=== PATIENT | male | born 1955 | race African-American/Black ===

== ENCOUNTER 2017-06-11 16:16 | Inpatient (IN) ==
[2017-06-11] MEDS ORDERED: Ondansetron 4 MG/2 ML VIAL IVP ONE (16:32)
[2017-06-11] MEDS ORDERED: 0.9 % Sodium Chloride 1,000 ML IVC ONE (16:32)
[2017-06-11] MEDS ORDERED: Dicyclomine 20 MG/2 ML AMPUL IM ONE (16:34)
--- NOTE | 2017-06-11 16:40 | Emergency Department Note ---
Disposition Clinical Impression: Hyponatremia Diarrhea Qualifiers: Diarrhea type: unspecified type Qualified Code(s): R19.7 - Diarrhea, unspecified Abdominal pain Qualifiers: Abdominal location: generalized Qualified Code(s): R10.84 - Generalized abdominal pain Disposition: Admitted As Inpatient Condition: Fair Time of Disposition: 21:31 General Adult HPI - General Chief complaint: ED Abdominal Pain Stated complaint: abdominal cramps, diarrhea Time Seen by Provider: 06/11/17 16:21 Source: patient, EMS Mode of arrival: ambulatory Limitations: no limitations Nursing Notes Reviewed: Yes Vital Signs Reviewed: Yes - History of Present Illness HPI Narrative: Patient is a 62-year-old male with a past medical history of prostate cancer resulting in coal colectomy and a colostomy bag and a history of drug abuse including opiates and cocaine and alcohol presenting today with diffuse cramping abdominal pain and watery stools in his colostomy bag. He states that 2 days ago he was felt that his stoma was blocked so yesterday he took a dose of MiraLAX he also drank lots of coffee to help stimulate bowel movements now he has this diffuse abdominal cramping with the diarrhea. He is denying any fevers or chills no chest pain or shortness of breath, no flank pain no changes in urination. States he does feel nauseous, he has not seen any blood in the stool. Pain Scale: 10 - Related Data Home Medications Medication Instructions Recorded Confirmed Tamsulosin [Flomax] 0.4 mg PO HS 12/31/15 08/17/16 Albuterol Neb [Proventil Neb] 2.5 mg IH Q4H PRN 08/17/16 08/17/16 Albuterol Sulfate [Albuterol 2 puff IH Q4H PRN 08/17/16 08/17/16 Inhaler] Aspirin Enteric Coated [Aspirin EC] 81 mg PO DAILY 08/17/16 08/17/16 Atorvastatin Calcium [Lipitor] 20 mg PO QPM 08/17/16 08/17/16 Baclofen [Lioresal] 10 mg PO TID PRN 08/17/16 08/17/16 Chlorhexidine Gluconate [Peridex] 15 ml MM BID 08/17/16 08/17/16 Dicyclomine HCl [Bentyl] 20 mg PO Q6H PRN 08/17/16 08/17/16 Enoxaparin [Lovenox] 40 mg SQ DAILY MDD STOP 08-18-16. 08/17/16 08/17/16 Finasteride [Proscar] 5 mg PO HS 08/17/16 08/17/16 FluocinoNIDE 0.05% CRM [Lidex] 1 appl TP BID PRN 08/17/16 08/17/16 Gabapentin [Neurontin] 600 mg PO TID 08/17/16 08/17/16 Lidocaine Patch [Lidoderm 5% patch] 1 each TP DAILY 08/17/16 08/17/16 Loperamide [Imodium] 2 mg PO AD PRN 08/17/16 08/17/16 Melatonin 3 mg PO HS 08/17/16 08/17/16 Mesalamine [Canasa] 1,000 mg RC HS 08/17/16 08/17/16 Mupirocin [Bactroban Oint] 1 appl TP TID 08/17/16 08/17/16 Naproxen [Naprosyn] 500 mg PO BID 08/17/16 08/17/16 Ondansetron HCl [Zofran] 4 mg PO Q6H PRN 08/17/16 08/17/16 Promethazine [Phenergan] 12.5 mg IM Q6HR PRN 08/17/16 08/17/16 Sertraline [Zoloft] 50 mg PO DAILY 08/17/16 08/17/16 Trazodone HCl 100 mg PO HS PRN 08/17/16 08/17/16 hydrOXYzine pamoate [Hydroxyzine 25 mg PO TID PRN 08/17/16 08/17/16 Pamoate] Previous Rx's Medication Instructions Recorded Magnesium Oxide 250 mg PO QDPC 30 Days 08/19/16 Metoprolol XL (24 HR) Succ [Toprol 12.5 mg PO DAILY 30 Days 08/19/16 Xl] Promethazine [Phenergan] 12.5 mg PO Q6HR PRN #8 tablet 02/19/17 Allergies Allergy/AdvReac Type Severity Reaction Status Date / Time etodolac Allergy Swelling Verified 06/11/17 16:26 of Lip/Tongue/Throat Penicillins Allergy See Verified 06/11/17 16:26 Comments sulfamethoxazole Allergy See Verified 06/11/17 16:26 [From Bactrim] Comments Tetracycline Allergy See Verified 06/11/17 16:26 Comments trimethoprim [From Bactrim] Allergy See Verified 06/11/17 16:26 Comments All systems ED: reviewed and negative except as stated. Constitutional: Denies: fever, chills Cardiovascular: Denies: chest pain, palpitations Respiratory: Denies: cough, dyspnea, wheezes Gastrointestinal: Reports: abdominal pain, nausea, vomiting (1 episode), diarrhea. Denies: constipation, hematemesis, melena, hematochezia Genitourinary: Denies: urgency, dysuria Musculoskeletal: Denies: back pain, neck pain Integumentary: Denies: rash, abrasion Neurological: Denies: headache, weakness Past Medical History - Past Medical History Medical history: Reports: cancer, CHF, COPD, diabetes, GERD, hepatitis, hypertension, myocardial infarction Surgical history: Reports: colostomy Psychiatric history: Reports: anxiety, depression, PTSD - Social History Smoking Status: Current every day smoker Smokeless Tobacco Status: No Alcohol use: Reports: heavy Drug use: Reports: cocaine, opiates Physical Exam - General Limitations: no limitations General appearance: alert, anxious, in distress (mild) - Head Head exam: atraumatic, normocephalic, normal inspection - Eye Eye exam: Present: normal appearance, PERRL - ENT ENT exam: normal exam, normal oropharynx, mucous membranes moist - Neck Neck exam: Present: normal inspection, full ROM, trachea midline - Chest Chest inspection: Present: normal inspection, symmetric chest wall rise - Respiratory Respiratory exam: Present: normal lung sounds bilaterally. Absent: respiratory distress, wheezes - Cardiovascular Cardiovascular exam: Present: regular rate, normal rhythm - Abdominal Exam Abdominal exam: Present: soft, hyperactive bowel sounds, other (Patient has a stoma that appears normal and patent. The colostomy bag has green watery stool present. No surrounding erythema. ). Absent: guarding, rebound, rigidity Abdominal tenderness: Present: diffuse, mild - Extremities Exam Extremities exam: Present: normal inspection, full ROM. Absent: tenderness - Neurological Exam Neurological exam: Present: alert, oriented X3 - Psychiatric Psychiatric exam: Present: normal affect, normal mood - Skin Skin exam: Present: warm, dry, intact, normal color Course Course Narrative: Upon chart review I saw the patient has a history of cocaine, opiate, alcohol use. Patient admits to cocaine use yesterday and the day before. States he does not feel that he is in withdrawal at this time. I ordered him 2 mg of Ativan because the patient is unable to sit still due to his pain. I also ordered him morphine for his pain. - Reevaluation(s) Reevaluation #1: Had a call from the lab patient has a sodium of 120. We have started him on a 1 L bolus of normal saline and believe this is due to his dehydration. Time: 17:28 Reevaluation #2: Patient is having muscular cramps and he will not sit still for his IV fluids to begin running so I ordered him 2mg of ativan. . Time: 18:54 Reevaluation #3: Patient will be admitted to hospitalist Dr. Servando Gambino. Vital Signs Temperature 98.4 F 06/11/17 16:19 Pulse Rate 86 06/11/17 16:19 Respiratory Rate 20 06/11/17 16:19 Blood Pressure 134/89 06/11/17 16:19 O2 Sat by Pulse Oximetry 97 06/11/17 16:19 Temperature 98.4 F 06/11/17 16:19 Pulse Rate 86 06/11/17 16:19 Respiratory Rate 16 06/11/17 22:19 Blood Pressure 143/79 06/11/17 22:19 O2 Sat by Pulse Oximetry 97 06/11/17 16:19 Oxygen Delivery Oxygen Delivery Room Air Medical Decision Making - Medical Records Medical records reviewed: Yes I reviewed the patient's medical records. - Lab Data Lab results reviewed: Yes I reviewed the patient's lab results. Result diagrams: 06/11/17 16:47 06/11/17 16:47 Lab Results 06/11/17 06/11/17 06/11/17 Range/Units 16:47 16:47 16:47 WBC 5.6 (4.3-11.1) K/mcL RBC 5.46 (4.19-5.50) M/mcL Hgb 17.3 H (12.9-16.9) g/dL Hct 49.8 (37.5-50.1) % MCV 91.2 (83.0-100.0) fL MCH 31.7 (28.0-33.3) pg MCHC 34.7 (31.6-35.5) g/dL RDW 12.5 (11.5-14.5) % Plt Count 295 (140-400) K/mcL MPV 8.9 L (9.4-12.4) fL Immature Gran % 0.2 (0-4) % Seg Neutrophils % 58.9 % Lymphocytes % 28.7 % Monocytes % 8.6 % Eosinophils % 2.9 % Basophils % 0.7 % Neutrophils # 3.3 (1.6-8.9) K/mcL Lymphocytes # 1.6 (0.6-4.6) K/mcL Monocytes # 0.5 (0.0-1.3) K/mcL Eosinophils # 0.2 (0.0-0.6) K/mcL Basophils # 0.0 (0.0-0.2) K/mcL Immature Plt Fraction 2.1 (1.1-6.1) % Sodium 120 L* (136-145) mEq/L Potassium 5.3 H (3.5-4.5) mEq/L Chloride 96 L (98-109) mEq/L Carbon Dioxide 15 L (19-29) mEq/L BUN 23 (8-26) mg/dL Creatinine 1.14 (0.72-1.25) mg/dL Est GFR ( Amer) > 60 (> 60) Est GFR (Non-Af Amer) > 60 (> 60) BUN/Creatinine Ratio 20 (6-26) Glucose 125 H (70-99) mg/dL Calculated Osmolality 255 L (280-300) Lactic Acid 1.6 (0.5-2.2) mmol/L Calcium 10.1 (8.6-10.8) mg/dL Total Bilirubin < 0.3 (0.2-1.2) mg/dL Direct Bilirubin 0.2 (0.0-0.5) mg/dL Indirect Bilirubin 0.1 (0.0-1.2) mg/dL AST 25 (5-34) Units/L ALT 19 (0-55) Units/L Alkaline Phosphatase 141 H (38-126) Units/L Serum Total Protein 8.9 H (6.0-8.3) g/dL Albumin 4.2 (3.5-5.0) g/dL Globulin 4.7 H (2.4-3.5) g/dL Albumin/Globulin Ratio 0.9 L (1.1-2.2) Lipase 36 (8-78) Units/L Urine Color (Yellow) Urine Clarity (Clear) Urine pH (5.0-8.0) pH Units Ur Specific [place] (1.010-1.025) Urine Protein (Neg-Trace) mg/dL Urine Glucose (UA) (Normal) mg/dL Urine Ketones (Negative) mg/dL Urine Blood (Negative) Urine Nitrite (Negative) Urine Bilirubin (Negative) Urine Urobilinogen (Normal) mg/dL Ur Leukocyte Esterase (Negative) Urine Microscopic RBC (0-3) per hpf Urine Microscopic WBC (0-3) per hpf Ur Squamous Epith Cells (None-Few) per lpf Amorphous Sediment (Few) Urine Bacteria (None-Few) per hpf Ur Culture Indicated? (NO) 06/11/17 Range/Units 20:22 WBC (4.3-11.1) K/mcL RBC (4.19-5.50) M/mcL Hgb (12.9-16.9) g/dL Hct (37.5-50.1) % MCV (83.0-100.0) fL MCH (28.0-33.3) pg MCHC (31.6-35.5) g/dL RDW (11.5-14.5) % Plt Count (140-400) K/mcL MPV (9.4-12.4) fL Immature Gran % (0-4) % Seg Neutrophils % % Lymphocytes % % Monocytes % % Eosinophils % % Basophils % % Neutrophils # (1.6-8.9) K/mcL Lymphocytes # (0.6-4.6) K/mcL Monocytes # (0.0-1.3) K/mcL Eosinophils # (0.0-0.6) K/mcL Basophils # (0.0-0.2) K/mcL Immature Plt Fraction (1.1-6.1) % Sodium (136-145) mEq/L Potassium (3.5-4.5) mEq/L Chloride (98-109) mEq/L Carbon Dioxide (19-29) mEq/L BUN (8-26) mg/dL Creatinine (0.72-1.25) mg/dL Est GFR ( Amer) (> 60) Est GFR (Non-Af Amer) (> 60) BUN/Creatinine Ratio (6-26) Glucose (70-99) mg/dL Calculated Osmolality (280-300) Lactic Acid (0.5-2.2) mmol/L Calcium (8.6-10.8) mg/dL Total Bilirubin (0.2-1.2) mg/dL Direct Bilirubin (0.0-0.5) mg/dL Indirect Bilirubin (0.0-1.2) mg/dL AST (5-34) Units/L ALT (0-55) Units/L Alkaline Phosphatase (38-126) Units/L Serum Total Protein (6.0-8.3) g/dL Albumin (3.5-5.0) g/dL Globulin (2.4-3.5) g/dL Albumin/Globulin Ratio (1.1-2.2) Lipase (8-78) Units/L Urine Color Yellow (Yellow) Urine Clarity Cloudy A (Clear) Urine pH 6.0 (5.0-8.0) pH Units Ur Specific [place] 1.022 (1.010-1.025) Urine Protein Negative (Neg-Trace) mg/dL Urine Glucose (UA) Normal (Normal) mg/dL Urine Ketones Negative (Negative) mg/dL Urine Blood Moderate H (Negative) Urine Nitrite Negative (Negative) Urine Bilirubin Negative (Negative) Urine Urobilinogen Normal (Normal) mg/dL Ur Leukocyte Esterase Moderate H (Negative) Urine Microscopic RBC 0-3 (0-3) per hpf Urine Microscopic WBC 0-3 (0-3) per hpf Ur Squamous Epith Cells Few (None-Few) per lpf Amorphous Sediment Few (Few) Urine Bacteria Few (None-Few) per hpf Ur Culture Indicated? YES A (NO) - Radiology Data Radiology results reviewed: Yes I reviewed the patient's radiology results. Abdomen/Pelvis CT 06/11/17 19:00 IMPRESSION: Proximal duodenal wall appears somewhat edematous. Findings may be related to mild duodenitis. D/ / Lauren Rob MD / Lauren Rob MD Interpreting Provider: Lauren Rob MD Attestation Statement - Attestation Attestation: I examined this patient and my medical decision-making was reviewed with the Resident Physician. I agree with the documented findings, disposition and treatment plan as described except to the extent set forth below. 62-year-old male with history of cocaine abuse. Ultimately found to have a sympathomimetic Toxidrome. The patient was medicated with benzodiazepines. CT scan of the abdomen was performed which shows edematous duodenum. He will be admitted for further evaluation of hyponatremia. Fluids were initiated in the emergency department patient was admitted in critical condition. I spent greater than 35 minutes of critical care time resuscitating this acutely ill patient suffering from hyponatremia. This is excluding billable procedures.
[2017-06-11 16:55] LABS: Basophils % 0.7 %; Eosinophils # 0.2 K/mcL (0.0-0.6); Eosinophils % 2.9 %; Hematocrit 49.8 % (37.5-50.1); Hemoglobin 17.3 g/dL (12.9-16.9); Immature Granulocytes % 0.2 % (0-4); Immature Platelets 2.1 % (1.1-6.1); Lymphocytes # 1.6 K/mcL (0.6-4.6); Lymphocytes % 28.7 %; Mean Corpuscular HGB Conc 34.7 g/dL (31.6-35.5); Mean Corpuscular Hemoglobin 31.7 pg (28.0-33.3); Mean Corpuscular Volume 91.2 fL (83.0-100.0); Mean Platelet Volume 8.9 fL (9.4-12.4); Monocytes # 0.5 K/mcL (0.0-1.3); Monocytes % 8.6 %; Neutrophils # 3.3 K/mcL (1.6-8.9); Platelet Count 295 K/mcL (140-400); Red Blood Count 5.46 M/mcL (4.19-5.50); Red Cell Distribution Width 12.5 % (11.5-14.5); Segmented Neutrophils % 58.9 %
[2017-06-11] MEDS ORDERED: *HR* Morphine 2 MG/ML SYRINGE IVP ONE (17:06)
[2017-06-11] MEDS ORDERED: *HR* LORazepam 2 MG/ML VIAL IM ONE (17:10)
[2017-06-11 17:14] LABS: Alanine Aminotransferase 19 Units/L (0-55); Albumin 4.2 g/dL (3.5-5.0); Albumin/Globulin Ratio 0.9 (1.1-2.2); Alkaline Phosphatase 141 Units/L (38-126); Aspartate Amino Transferase 25 Units/L (5-34); BUN/Creatinine Ratio 20 (6-26); Bilirubin,Direct 0.2 mg/dL (0.0-0.5); Bilirubin,Indirect 0.1 mg/dL (0.0-1.2); Blood Urea Nitrogen 23 mg/dL (8-26); Calcium 10.1 mg/dL (8.6-10.8); Carbon Dioxide 15 mEq/L (19-29); Chloride 96 mEq/L (98-109); Globulin 4.7 g/dL (2.4-3.5); Glucose 125 mg/dL (70-99); Lipase 36 Units/L (8-78); Osmolality,Calculated 255 (280-300); Potassium 5.3 mEq/L (3.5-4.5); Total Protein 8.9 g/dL (6.0-8.3); eGFR For African Americans > 60 (> 60); eGFR For Non-African Americans > 60 (> 60)
[2017-06-11 17:15] LABS: Bilirubin,Total < 0.3 mg/dL (0.2-1.2)
[2017-06-11 17:18] LABS: Sodium 120 mEq/L (136-145)
[2017-06-11] MEDS ORDERED: *HR* LORazepam 2 MG/ML VIAL IVP ONE (18:52)
[2017-06-11] MEDS ORDERED: Haloperidol Lactate 5 MG/ML VIAL IM ONE (19:37)
[2017-06-11 20:39] LABS: Bilirubin,Urine Negative (Negative); Blood,Urine Moderate (Negative); Clarity,Urine Cloudy (Clear); Color,Urine Yellow (Yellow); Glucose,Urine (UA) Normal (Normal); Ketones,Urine Negative (Negative); Leukocyte Esterase,Urine Moderate (Negative); Nitrite,Urine Negative (Negative); Protein,Urine Negative (Neg-Trace); Specific Gravity,Urine 1.022 (1.010-1.025); Urobilinogen,Urine Normal (Normal)
[2017-06-11 20:52] LABS: RBC,Urine 0-3 per hpf (0-3); WBC,Urine 0-3 per hpf (0-3)
[2017-06-11 20:53] LABS: Amorphous Sediment,Urine Few (Few); Bacteria,Urine Few per hpf (None-Few); Squamous Epithelial Cell,Urine Few per lpf (None-Few)
[2017-06-11] MEDS ORDERED: Acetaminophen 325 MG TABLET PO PRN (23:05)
[2017-06-11] MEDS ORDERED: Ondansetron 4 MG/2 ML VIAL IVP PRN (23:05)
[2017-06-11] MEDS ORDERED: Naloxone 0.4 MG/ML INJ IVP PRN (23:05)
[2017-06-11] MEDS ORDERED: 0.9 % Sodium Chloride 1,000 ML ONE (23:14)
[2017-06-11] MEDS ORDERED: 0.9 % Sodium Chloride 1,000 ML IVC SCH (23:15)
--- NOTE | 2017-06-11 23:22 | Internal Med History&Physical ---
Date of Encounter: 06/12/17 Time of Encounter: 10:00 Assessment and Plan (1) Substance abuse or dependence Current visit: No Status: Acute Patient uses cocaine and marijuana. We will consult social work for detox referral. (2) DVT prophylaxis Current visit: No Status: Acute Heparin subcutaneously (3) Hyponatremia Current visit: Yes Status: Acute Sodium level 120. Patient has vomiting and the diarrhea. Consider hypovolemic hyponatremia. - Patient has received 1 L of saline in the emergency room. - We will continue 0.9% normal saline 100 mL per hour. - Closely monitor sodium level every 6 hours. Goal of correction is not over 8- 10 mEq in the first 24 hours. (4) Abdominal pain Current visit: Yes Status: Acute CT abd shows mild duodennitis. Will place pt on NPO, iv cipro and flagyl. IVF to treat dehydration. - Symptomatic treatment for pain and nausea/vomiting. Qualifiers: Abdominal location: generalized Qualified Code(s): R10.84 - Generalized abdominal pain Internal Medicine - H&P: HPI Chief complaint: Abdominal pain, nausea, vomiting, and diarrhea Admitted From: Home Plans for Post Hospital Care: Home History of present illness: Mr. Mccauley is a 62 year old male with history of CAD, CHF, hypertension, multiple drug abuse, prostate cancer S/P colostomy present to emergency room for nausea, vomiting, abdominal pain, and diarrhea for 3 days. Patient's vomiting is stomach content, no blood in it. Patient denies recent hospitalization or antibiotic use. He has no fever. Patient denies chest pain or shortness of breath. Patient has history of multiple drug abuse. He is very anxious E emergency room and was given holadol and antivan. He also was found hyponatremia in emergency room. He was admitted for further management. I have discussed CODE STATUS with patient. He is full code Past Med Surg Social Fam HX - Past Medical History Medical history: cancer, CHF, COPD, diabetes, GERD, hepatitis, hypertension, myocardial infarction Psychiatric history: anxiety, depression, PTSD - Past Surgical History Surgical History: colostomy - Social History Smoking Status: Current every day smoker Smokeless Tobacco Status: No Alcohol use: heavy Drug use: cocaine, opiates Internal Medicine - H&P: Meds RX: Tamsulosin [Flomax] 0.4 mg PO HS 12/31/15 [History] RX: Albuterol Neb [Proventil Neb] 2.5 mg IH Q4H PRN 08/17/16 [History] RX: Albuterol Sulfate [Albuterol Inhaler] 2 puff IH Q4H PRN 08/17/16 [History] RX: Aspirin Enteric Coated [Aspirin EC] 81 mg PO DAILY 08/17/16 [History] RX: Atorvastatin Calcium [Lipitor] 20 mg PO QPM 08/17/16 [History] RX: Baclofen [Lioresal] 10 mg PO TID PRN 08/17/16 [History] RX: Chlorhexidine Gluconate [Peridex] 15 ml MM BID 08/17/16 [History] RX: Dicyclomine HCl [Bentyl] 20 mg PO Q6H PRN 08/17/16 [History] RX: Enoxaparin [Lovenox] 40 mg SQ DAILY MDD STOP 08-18-. 08/17/16 [History] RX: Finasteride [Proscar] 5 mg PO HS 08/17/16 [History] RX: FluocinoNIDE 0.05% CRM [Lidex] 1 appl TP BID PRN 08/17/16 [History] RX: Gabapentin [Neurontin] 600 mg PO TID 08/17/16 [History] RX: Lidocaine Patch [Lidoderm 5% patch] 1 each TP DAILY 08/17/16 [History] RX: Loperamide [Imodium] 2 mg PO AD PRN 08/17/16 [History] RX: Melatonin 3 mg PO HS 08/17/16 [History] RX: Mesalamine [Canasa] 1,000 mg RC HS 08/17/16 [History] RX: Mupirocin [Bactroban Oint] 1 appl TP TID 08/17/16 [History] RX: Naproxen [Naprosyn] 500 mg PO BID 08/17/16 [History] RX: Ondansetron HCl [Zofran] 4 mg PO Q6H PRN 08/17/16 [History] RX: Promethazine [Phenergan] 12.5 mg IM Q6HR PRN 08/17/16 [History] RX: Sertraline [Zoloft] 50 mg PO DAILY 08/17/16 [History] RX: Trazodone HCl 100 mg PO HS PRN 08/17/16 [History] RX: hydrOXYzine pamoate [Hydroxyzine Pamoate] 25 mg PO TID PRN 08/17/16 [History ] RX: Magnesium Oxide 250 mg PO QDPC 30 Days 08/19/16 [Rx] RX: Metoprolol XL (24 HR) Succ [Toprol Xl] 12.5 mg PO DAILY 30 Days 08/19/16 [Rx ] Promethazine [Phenergan] 12.5 mg PO Q6HR PRN #8 tablet 02/19/17 [Rx] 3 Allergy/AdvReac Type Severity Reaction Status Date / Time etodolac Allergy Swelling Verified 06/11/17 16:26 of Lip/Tongue/Throat Penicillins Allergy See Verified 06/11/17 16:26 Comments sulfamethoxazole Allergy See Verified 06/11/17 16:26 [From Bactrim] Comments Tetracycline Allergy See Verified 06/11/17 16:26 Comments trimethoprim [From Bactrim] Allergy See Verified 06/11/17 16:26 Comments All Systems PM: A 10-system review of systems was performed and is negative for pertinent findings except as documented above in the HPI. - Constitutional Vitals: Temp Pulse Resp BP Pulse Ox 97.9 F 89 14 156/97 98 06/11/17 23:04 06/11/17 23:04 06/11/17 23:04 06/11/17 23:04 06/11/17 23:04 General appearance: Present: A&O X 3, no acute distress, answers questions appropriately - Head Head exam: Present: atraumatic, normocephalic - Eye Eye exam: Present: PERRL, conjuntiva pink, sclera anicteric Pupils: Present: PERRL - Neck Neck exam general surgery: Present: supple, trachea midline. Absent: lymphadenopathy - Respiratory Respiratory exam: Present: CTAB. Absent: accessory muscle use, rales, rhonchi, wheezes - Cardiovascular Cardiovascular exam: Present: RRR, +S1, +S2. Absent: diastolic murmur, gallop, rubs, systolic murmur - GI/Abdominal GI/Abdominal exam: Present: normal bowel sounds, soft, no peritoneal signs. Absent: distended, tenderness - Extremities Exam Extremities exam: Present: warm, radial pulses palpable and symmetrical. Absent : calf tenderness, cyanotic, pedal edema - Neurological Exam Neurological exam: Present: CN II-XII intact, oriented X3, no focal deficits. Absent: pronater drift, facial droop, speech deficit - Skin Skin exam: Present: dry, intact Internal Med - H&P Results - Labs CBC & Chem 7: 06/12/17 00:58 06/12/17 00:58
[2017-06-11] MEDS ORDERED: Baclofen 10 MG TABLET PO PRN (23:23)
[2017-06-11] MEDS ORDERED: traZODone 50 MG TABLET PO PRN (23:23)
[2017-06-11] MEDS ORDERED: *HR* LORazepam 2 MG/ML VIAL IVP PRN (23:25)
[2017-06-11] MEDS: MetroNIDAZOLE 500 MG/100 ML 500 MG/100 ML BAG IVPB SCH (23:50)
[2017-06-12 01:09] LABS: Basophils % 0.5 %; Eosinophils # 0.1 K/mcL (0.0-0.6); Eosinophils % 1.1 %; Hematocrit 51.9 % (37.5-50.1); Hemoglobin 17.9 g/dL (12.9-16.9); Immature Granulocytes % 0.5 % (0-4); Lymphocytes # 1.6 K/mcL (0.6-4.6); Lymphocytes % 28.2 %; Mean Corpuscular HGB Conc 34.5 g/dL (31.6-35.5); Mean Corpuscular Hemoglobin 31.1 pg (28.0-33.3); Mean Corpuscular Volume 90.1 fL (83.0-100.0); Mean Platelet Volume 9.1 fL (9.4-12.4); Monocytes # 0.5 K/mcL (0.0-1.3); Neutrophils # 3.4 K/mcL (1.6-8.9); Platelet Count 280 K/mcL (140-400); Red Blood Count 5.76 M/mcL (4.19-5.50); Red Cell Distribution Width 12.3 % (11.5-14.5); Segmented Neutrophils % 60.7 %
[2017-06-12 01:22] LABS: BUN/Creatinine Ratio 23 (6-26); Blood Urea Nitrogen 22 mg/dL (8-26); Calcium 9.8 mg/dL (8.6-10.8); Carbon Dioxide 16 mEq/L (19-29); Chloride 96 mEq/L (98-109); Glucose 87 mg/dL (70-99); Osmolality,Calculated 265 (280-300); Potassium 4.4 mEq/L (3.5-4.5); Sodium 126 mEq/L (136-145); eGFR For African Americans > 60 (> 60); eGFR For Non-African Americans > 60 (> 60)
[2017-06-12 05:16] LABS: BUN/Creatinine Ratio 18 (6-26); Blood Urea Nitrogen 22 mg/dL (8-26); Calcium 10.4 mg/dL (8.6-10.8); Carbon Dioxide 13 mEq/L (19-29); Chloride 101 mEq/L (98-109); Glucose 100 mg/dL (70-99); Osmolality,Calculated 267 (280-300); Sodium 127 mEq/L (136-145); eGFR For African Americans > 60 (> 60); eGFR For Non-African Americans > 60 (> 60)
[2017-06-12 05:17] LABS: Potassium 6.1 mEq/L (3.5-4.5)
[2017-06-12] MEDS: *HR* Heparin 5,000 UNIT/ML VIAL SQ SCH ×2 (06:12→18:34)
[2017-06-12] MEDS ORDERED: Pantoprazole 40 MG VIAL IVP SCH (06:30)
[2017-06-12] MEDS: Sodium Bicarbonate 150 MEQ in D5% in Water 1,000 ML IVC SCH (08:50)
[2017-06-12] MEDS: MetroNIDAZOLE 500 MG/100 ML 500 MG/100 ML BAG IVPB SCH (08:50)
[2017-06-12] MEDS ORDERED: amLODIPine 5 MG TABLET PO ONE (10:54)
[2017-06-12 12:06] LABS: BUN/Creatinine Ratio 19 (6-26); Blood Urea Nitrogen 20 mg/dL (8-26); Calcium 9.4 mg/dL (8.6-10.8); Carbon Dioxide 14 mEq/L (19-29); Chloride 103 mEq/L (98-109); Glucose 80 mg/dL (70-99); Osmolality,Calculated 266 (280-300); Sodium 127 mEq/L (136-145); eGFR For African Americans > 60 (> 60); eGFR For Non-African Americans > 60 (> 60)
--- NOTE | 2017-06-12 13:25 | Internal Med Progress Note ---
Date of Encounter: 06/12/17 Time of Encounter: 10:30 - Assessment and plan (1) Duodenitis Current Visit: Yes Status: Acute Assessment and plan: Patient presents it with sudden onset abdominal cramping and diarrhea over the past 2 days. We will send stool for Clostridium differential side and for cultures and studies. Hold antibiotics until further stool analysis is available. Patient is high risk due to risk of lethal arrhythmias. And there is need for close monitoring. (2) Metabolic acidosis Current Visit: Yes Status: Acute Assessment and plan: Due to bicarbonate loss in his diarrhea. Patient will be placed on bicarbonate drip as he has normal anion gap metabolic acidosis. Monitor correction of hyperkalemia with correction of acidosis. (3) Cocaine abuse Current Visit: No Status: Chronic Assessment and plan: Counseled regarding the need for cessation. (4) Hypertension, essential Current Visit: Yes Status: Chronic Assessment and plan: Controlled. Monitor carefully with hydration. (5) Tobacco abuse disorder Current Visit: Yes Status: Chronic Assessment and plan: Counseled regarding cessation. - Subjective Interval history: Patient states that he is having intermittent abdominal cramps. He states that he has had up to 5 bowel movements a day over the past 2 days. He states that he cooks his own food and denies eating out. He denies any sick contacts. He states that he lives alone at home. Denies any nausea or vomiting. He states that he is hungry and is requesting some food. Denies any fever or chills. Denies any blood in the stools. - Constitutional Vitals: Temp Pulse Resp BP Pulse Ox 97.7 F 62 14 131/76 98 06/12/17 11:05 06/12/17 11:05 06/12/17 11:05 06/12/17 11:05 06/12/17 11:05 Exam: Gen.: Lying in bed. No acute distress. Somnolent and keeps falling asleep during examination. Chest: Clear to auscultation bilaterally. No adventitious sounds present. CVS: First and second heart sounds present. No murmurs, rubs or gallops. Abdomen: Soft, nontender, nondistended. Bowel sounds present. No hepatosplenomegaly. Midline colostomy bag present. Skin: No decubitus ulcers appreciated. Internal Medicine: Result - Labs CBC & Chem 7: 06/12/17 00:58 06/12/17 11:28 Labs: Short CBC 06/12/17 Range/Units 00:58 WBC 5.5 (4.3-11.1) K/mcL Hgb 17.9 H (12.9-16.9) g/dL Hct 51.9 H (37.5-50.1) % Plt Count 280 (140-400) K/mcL Neutrophils # 3.4 (1.6-8.9) K/mcL BMP 06/12/17 06/12/17 06/12/17 00:58 04:56 07:45 Sodium 126 L 127 L Potassium 4.4 6.1 H D 5.6 H Chloride 96 L 101 Carbon Dioxide 16 L 13 L BUN 22 22 Creatinine 0.96 1.19 Glucose 87 100 H Calcium 9.8 10.4 06/12/17 11:28 Sodium 127 L Potassium 5.0 H Chloride 103 Carbon Dioxide 14 L BUN 20 Creatinine 1.05 Glucose 80 Calcium 9.4 Consult Discharge Plan - Plan Referrals: [facility] [Primary Care Provider[facility] -
[2017-06-12 13:45] LABS: Amphetamine Screen,Urine Negative ng/mL (Cutoff=1000); Barbiturate Screen,Urine Negative ng/mL (Cutoff=200); Benzodiazepines Screen,Urine Negative ng/mL (Cutoff=200); Cannabinoid Screen,Urine Negative ng/mL (Cutoff = 50); Cocaine Screen,Urine Positive ng/mL (Cutoff= 300); Opiate Screen,Urine Negative ng/mL (Cutoff=300); Phencyclidine Screen,Urine Negative ng/mL (Cutoff=25)
[2017-06-12 16:40] LABS: Blood Urea Nitrogen 21 mg/dL (8-26); Carbon Dioxide 17 mEq/L (19-29); Chloride 101 mEq/L (98-109); Sodium 127 mEq/L (136-145)
[2017-06-12 16:41] LABS: BUN/Creatinine Ratio 18 (6-26); Calcium 9.8 mg/dL (8.6-10.8); Glucose 70 mg/dL (70-99); Osmolality,Calculated 265 (280-300); eGFR For African Americans > 60 (> 60); eGFR For Non-African Americans > 60 (> 60)
[2017-06-12 16:43] LABS: Potassium 4.9 mEq/L (3.5-4.5)
[2017-06-12 17:04] LABS: Adenovirus F 40/41 PCR Not detected (Not detect); Astrovirus PCR Not detected (Not detect); C.difficile Toxin A/B by PCR Not detected (Not detect); Campylobacter by PCR Not detected (Not detect); Cryptosporidium by PCR Not detected (Not detect); Cyclospora cayetanensis PCR Not detected (Not detect); E. coli O157 by PCR Not detected (Not detect); Entamoeba histolytica PCR Not detected (Not detect); Enteroaggregative E.coli(EAEC) Not detected (Not detect); Enteropathogenic E.coli(EPEC) Not detected (Not detect); Enterotoxigenic E.coli (ETEC) Not detected (Not detect); Giardia lamblia PCR Not detected (Not detect); Norovirus GI/GII PCR Not detected (Not detect); Plesiomonas shigelloides PCR Not detected (Not detect); Rotavirus A PCR Not detected (Not detect); Salmonella PCR Not detected (Not detect); Sapovirus PCR Not detected (Not detect); Shig/EnteroinvasiveE coli EIEC Not detected (Not detect); Shigalike tox-prod E coli STEC Not detected (Not detect); Vibrio PCR Not detected (Not detect); Vibrio cholerae PCR Not detected (Not detect); Yersinia enterocolitica PCR Not detected (Not detect)
[2017-06-12] MEDS ORDERED: hydrOXYzine pamoate 25 MG CAPSULE PO PRN (23:23)
[2017-06-12] MEDS ORDERED: Melatonin 3 MG TABLET PO SCH (23:30)
[2017-06-13] MEDS: Gabapentin 400 MG CAPSULE PO SCH ×2 (00:09→08:45)
[2017-06-13] MEDS: Sodium Bicarbonate 150 MEQ in D5% in Water 1,000 ML IVC SCH (03:22)
[2017-06-13 05:10] LABS: Basophils % 0.5 %; Eosinophils # 0.2 K/mcL (0.0-0.6); Eosinophils % 5.9 %; Hematocrit 40.3 % (37.5-50.1); Hemoglobin 14.6 g/dL (12.9-16.9); Immature Granulocytes % 0.3 % (0-4); Immature Platelets 1.9 % (1.1-6.1); Lymphocytes % 54.9 %; Mean Corpuscular HGB Conc 36.2 g/dL (31.6-35.5); Mean Corpuscular Hemoglobin 31.9 pg (28.0-33.3); Mean Platelet Volume 9.3 fL (9.4-12.4); Monocytes # 0.5 K/mcL (0.0-1.3); Monocytes % 12.7 %; Platelet Count 230 K/mcL (140-400); Red Blood Count 4.58 M/mcL (4.19-5.50); Red Cell Distribution Width 12.3 % (11.5-14.5); Segmented Neutrophils % 25.7 %
[2017-06-13] MEDS: *HR* Heparin 5,000 UNIT/ML VIAL SQ SCH (05:26)
[2017-06-13 05:40] LABS: BUN/Creatinine Ratio 24 (6-26); Blood Urea Nitrogen 21 mg/dL (8-26); Calcium 8.9 mg/dL (8.6-10.8); Carbon Dioxide 24 mEq/L (19-29); Chloride 101 mEq/L (98-109); Glucose 119 mg/dL (70-99); Osmolality,Calculated 278 (280-300); Potassium 3.5 mEq/L (3.5-4.5); Sodium 132 mEq/L (136-145); eGFR For African Americans > 60 (> 60); eGFR For Non-African Americans > 60 (> 60)
[2017-06-13 11:30] VITALS: BP 143/81
--- NOTE | 2017-06-13 13:16 | Discharge Summary ---
Date of Encounter: 06/13/17 Time of Encounter: 10:30 - Discharge Diagnosis (1) Duodenitis Priority: Primary Status: Acute (2) Metabolic acidosis Priority: Secondary Status: Resolved (3) Cocaine abuse Priority: Secondary Status: Chronic (4) Hypertension, essential Priority: Secondary Status: Chronic (5) Tobacco abuse disorder Priority: Secondary Status: Chronic (6) Moderate protein-calorie malnutrition Priority: Secondary Status: Chronic - Discharge Medications Prescriptions: Loperamide [Imodium] 2 mg PO AD PRN #90 PRN Reason: Diarrhea Home Medications: Tamsulosin [Flomax] 0.4 mg PO HS 12/31/15 [History] Albuterol Neb [Proventil Neb] 2.5 mg IH Q4H PRN 08/17/16 [History] Albuterol Sulfate [Albuterol Inhaler] 2 puff IH Q4H PRN 08/17/16 [History] Aspirin Enteric Coated [Aspirin EC] 81 mg PO DAILY 08/17/16 [History] Atorvastatin Calcium [Lipitor] 20 mg PO QPM 08/17/16 [History] Finasteride [Proscar] 5 mg PO HS 08/17/16 [History] FluocinoNIDE 0.05% CRM [Lidex] 1 appl TP BID PRN 08/17/16 [History] Melatonin 3 mg PO HS 08/17/16 [History] Mesalamine [Canasa] 1,000 mg RC HS 08/17/16 [History] Mupirocin [Bactroban Oint] 1 appl TP TID 08/17/16 [History] Naproxen [Naprosyn] 500 mg PO BID 08/17/16 [History] Sertraline [Zoloft] 50 mg PO DAILY 08/17/16 [History] Trazodone HCl 100 mg PO HS PRN 08/17/16 [History] hydrOXYzine pamoate [Hydroxyzine Pamoate] 25 mg PO TID PRN 08/17/16 [History] Magnesium Oxide 250 mg PO QDPC 30 Days 08/19/16 [Rx] Metoprolol XL (24 HR) Succ [Toprol Xl] 12.5 mg PO DAILY 30 Days 08/19/16 [Rx] Carboxymethylcellulose Sodium [Refresh Tears] 1 drop OP TID PRN 06/12/17 [ History] Cholecalciferol (D-3) [Vitamin D] 2,000 unit PO DAILY 06/12/17 [History] Fluticasone Propionate Nasal [Flonase] 1 spr NS DAILY 06/12/17 [History] Gabapentin [Neurontin] 800 mg PO TID 06/12/17 [History] Multivitamin with Minerals [One-A-Day Maximum Formula] 1 tab PO DAILY 06/12/17 [ History] Omeprazole [PriLOSEC] 20 mg PO DAILY 06/12/17 [History] Sildenafil Citrate [Viagra] 100 mg PO DAILY PRN 06/12/17 [History] Loperamide [Imodium] 2 mg PO AD PRN #90 06/13/17 [Rx] Allergies/Adverse Reactions: 3 Allergy/AdvReac Type Severity Reaction Status Date / Time etodolac Allergy Swelling Verified 06/11/17 16:26 of Lip/Tongue/Throat Penicillins Allergy See Verified 06/11/17 16:26 Comments sulfamethoxazole Allergy See Verified 06/11/17 16:26 [From Bactrim] Comments Tetracycline Allergy See Verified 06/11/17 16:26 Comments trimethoprim [From Bactrim] Allergy See Verified 06/11/17 16:26 Comments Procedures/tests Complete & Pending: Procedures Performed prior 72 hours Category Date Time Status ECG 12 lead ECG [ECG] Routine Y 06/12/17 01:47 Completed Date of admission: 06/11/17 23:05 [facility] care physician: [facility] Consults: 06/12/17 13:21 Consult to Physical Therapy [CONS] Routine Comment: Evaluate, develop and implement POC Reason for Consult: Weakness Discharging clinician: Butch Rock Anticipated date of discharge: 06/13/17 - Patient Status Disposition: Home, Self-Care Condition: Good Functional capacity at discharge: independent ambulation Overall status at discharge: patient is progressing back to baseline - Discharge Instructions Follow Up With: [facility] [Primary Care Provider] - - Diet and Activity Activity: increase activity as tolerated, resume usual activities as tolerated Diet: advance to your usual diet Hospital course: Mr. Mccauley is a 62 year old male with a history of hypertension, prostate cancer status post colostomy presented to the emergency room for abdominal pain and diarrhea of [address] scan of the abdomen demonstrated mild duodenitis. He was admitted and placed on intravenous fluids. He was found to have an anabolic acidosis due to bicarbonate wasting in his diarrhea. Hence, his fluids were switched to bicarbonate drip. His metabolic acidosis corrected. The patient was able to consume diet and tolerated well without any discomfort. As the patient is doing well and his cramps have resolved and he no longer has abdominal pain and is able to tolerate by mouth diet, he has been deemed stable to be discharged home today. Patient has had chronic diarrhea over the past 2 years for which he uses loperamide. He has requested a refill for loperamide. This has been provided to him. His stool analysis did not reveal any infectious cause. - Time Spent with Patient Total time spent providing and/or coordinating discharge services: Greater than 30 minutes (40 min) - Constitutional Vitals: Temp Pulse Resp BP Pulse Ox 97.6 F 86 16 143/81 100 06/13/17 11:23 06/13/17 11:23 06/13/17 11:23 06/13/17 11:23 06/13/17 11:23 General appearance: Present: A&O X 3, no acute distress, answers questions appropriately
--- NOTE | 2017-06-13 16:56 | Electrocardiograph Report ---
[place] [id number] Test Date: 2017-06-12 Pat Name: Aristides Mccauley Department: 111 Room: 2NE19 Gender: M [employer] Supervisor: : [id number] Requested By: Butch Rock Order Number: [id number] Reading MD: Dionne Rogers Measurements Intervals [place] Rate: 106 P: 76 [place]: 144 QRS: 36 QRSD: 93 T: 114 QT: 336 QTc: 398 Interpretive Statements SINUS TACHYCARDIA ST DEVIATION AND MODERATE T-WAVE ABNORMALITY, CONSIDER LATERAL ISCHEMIA Electronically Signed On 06-13-2017 16:54:43 EDT by Dionne Rogers
== END 2017-06-13 15:31 | disposition home or self-care (01) | DRG 241 ==
LOC: EMEROO 16:16 → 2NENU 16:16
PROVIDERS: ADMIT Internal Medicine; ATTEND Internal Medicine Sleep Medicine

== ENCOUNTER 2017-09-17 11:04 | Inpatient (IN) ==
[2017-09-17] MEDS ORDERED: *HR* Morphine 2 MG/ML SYRINGE IVP ONE (11:39)
[2017-09-17] MEDS ORDERED: 0.9 % Sodium Chloride 1,000 ML IVC ONE ×2 (11:39→14:55)
[2017-09-17] MEDS ORDERED: Pantoprazole 40 MG VIAL IVP ONE (11:39)
[2017-09-17] MEDS ORDERED: *HR* Promethazine 25 MG/ML VIAL IVP ONE (11:39)
--- NOTE | 2017-09-17 11:47 | Emergency Department Note ---
Disposition Clinical Impression: CATRACHITO (acute kidney injury), Elevated lactic acid level Nausea & vomiting Qualifiers: Vomiting type: unspecified Vomiting Intractability: non-intractable Qualified Code(s): R11.2 - Nausea with vomiting, unspecified Disposition: Admitted As Inpatient Condition: Fair Nausea/Vomiting/Diarrhea HPI - General Chief complaint: ED Nausea/Vomiting/Diarrhea Stated complaint: body cramping/feels dehydrated/NVD Time Seen by Provider: 09/17/17 11:09 Source: patient, EMS Limitations: no limitations Nursing Notes Reviewed: Yes Vital Signs Reviewed: Yes - History of Present Illness HPI Narrative: 62-year-old male presents to the emergency department with nausea, vomiting, abdominal pain, feel myalgias all over. Patient states that this has recently started. He does have a colostomy bag for prostatic cancer. Patient denies any chest pain, cough, dyspnea, hemoptysis. Patient has reported some blood streaks in his vomit. - Related Data Home Medications Medication Instructions Recorded Confirmed Tamsulosin [Flomax] 0.8 mg PO HS 12/31/15 09/17/17 Finasteride [Proscar] 5 mg PO HS 08/17/16 09/17/17 Melatonin 3 mg PO HS PRN 08/17/16 09/17/17 Mesalamine [Canasa] 1,000 mg RC HS 08/17/16 09/17/17 Naproxen [Naprosyn] 500 mg PO BID 08/17/16 09/17/17 Trazodone HCl 100 mg PO HS PRN 08/17/16 09/17/17 Carboxymethylcellulose Sodium 1 drop BOTH EYES BID PRN 06/12/17 09/17/17 [Refresh Tears] Cholecalciferol (D-3) [Vitamin D] 2,000 unit PO DAILY 06/12/17 09/17/17 Gabapentin [Neurontin] 800 mg PO TID 06/12/17 09/17/17 Omeprazole [PriLOSEC] 20 mg PO HS 06/12/17 09/17/17 Sildenafil Citrate [Viagra] 100 mg PO DAILY PRN 06/12/17 09/17/17 Adhesive Remover [Adhesive Remover 1 each MC AD 09/17/17 09/17/17 Wipes] Aloe Vera/Collagen [Aloe Bantam 1 appl TP AD 09/17/17 09/17/17 Cleansing Foam] Aspirin 81 mg PO DAILY 09/17/17 09/17/17 Atorvastatin [Lipitor] 40 mg PO HS 09/17/17 09/17/17 Dimethicone/Petrolatum,White 1 appl TP AD 09/17/17 09/17/17 [Sensi-Care Moisturizing 2 Crm] Guaifenesin [Tab Tussin] 400 mg PO TID PRN 09/17/17 09/17/17 Loperamide [Imodium] 2 mg PO PER PKG DI PRN 09/17/17 09/17/17 Sertraline [Zoloft] 100 mg PO DAILY 09/17/17 09/17/17 hydrOXYzine HCl [Hydroxyzine HCl] 25 mg PO TID PRN 09/17/17 09/17/17 Previous Rx's Medication Instructions Recorded Metoprolol XL (24 HR) Succ [Toprol 12.5 mg PO DAILY 30 Days 08/19/16 Xl] tab.er.24h Allergies Allergy/AdvReac Type Severity Reaction Status Date / Time etodolac Allergy Swelling Verified 09/17/17 11:11 of Lip/Tongue/Throat Penicillins Allergy See Verified 09/17/17 11:11 Comments sulfamethoxazole Allergy See Verified 09/17/17 11:11 [From Bactrim] Comments Tetracycline Allergy See Verified 09/17/17 11:11 Comments trimethoprim [From Bactrim] Allergy See Verified 09/17/17 11:11 Comments Amoxicillin AdvReac See Verified 09/17/17 17:26 Comments milk AdvReac See Verified 09/17/17 17:26 Comments tramadol AdvReac See Verified 09/17/17 17:26 Comments All systems ED: reviewed and negative except as stated. Review of Systems: As Per HPI Constitutional: Reports: weakness. Denies: fever Cardiovascular: Denies: chest pain Respiratory: Denies: cough, dyspnea, wheezes, hemoptysis Gastrointestinal: Reports: abdominal pain, nausea, vomiting, hematemesis Genitourinary: Denies: urgency Musculoskeletal: Reports: myalgia Integumentary: Denies: rash Neurological: Denies: headache Past Medical History - Past Medical History Medical history: Reports: cancer, CHF, COPD, diabetes, GERD, hepatitis, hypertension, myocardial infarction, other Surgical history: Reports: colostomy Psychiatric history: Reports: anxiety, depression, PTSD - Social History Smoking Status: Current every day smoker Smokeless Tobacco Status: No Alcohol use: Reports: heavy Drug use: Reports: cocaine, opiates Physical Exam CONSTITUTIONAL: A 62-year-old anxious -[place] male, cracked, dry lips, standing up, pacing in the room. HEAD: Normocephalic; atraumatic. EYES: PERRL, no scleral icterus. NOSE: The nose is normal in appearance without rhinorrhea RESP: Normal chest excursion with respiration; breath sounds clear and equal bilaterally; no wheezes, rhonchi, or rales CARD: Regular rhythm, without murmurs, rub or gallop ABD: Non-distended; non-tender, soft,without rigidity, rebound or guarding, colostomy bag SKIN: Normal for age and race; warm and dry; no apparent lesions - General Limitations: no limitations General appearance: alert Course Vital Signs Temperature 97.9 F 09/17/17 11:12 Pulse Rate 100 09/17/17 11:12 Respiratory Rate 24 09/17/17 11:12 Blood Pressure 118/82 09/17/17 11:12 O2 Sat by Pulse Oximetry 98 09/17/17 11:12 Temperature 97.7 F 09/17/17 17:19 Pulse Rate 76 09/17/17 17:19 Respiratory Rate 14 09/17/17 17:19 Blood Pressure 143/90 09/17/17 17:19 O2 Sat by Pulse Oximetry 99 09/17/17 17:19 Oxygen Delivery Oxygen Delivery Room Air Nausea/Vomiting/Diarrhea - [facility] Narrative Medical decision making narrative: 62-year-old male presents emergency Department with nausea, vomiting, blood- tinged vomit and myalgias. At this time we are obtaining a CT scan of the abdomen and pelvis. We will also obtain EKG, troponin, chest x-ray, CBC, CMP, lipase. We will manage the patient's pain with morphine as well as Phenergan for anti-emetics. Patient is tachycardic with a pulse of 100. Patient was started on protonic drip here in the emergency department due to concern with blood-tinged vomitus. Chest x-ray did not reveal any acute cardiopulmonary disease. Electrocardiogram did not reveal any new ischemic changes. Troponin was within normal limits. CBC did not reveal any leukocytosis or anemia. CMP a creatinine of 2.35. We administered a liter of normal saline here in the emergency department. Creatinine improved to 1.98. Patient had an elevated lactic acid of 5.2. As this patient of Avelino pain with elevated lactic acid, we apparently started Zosyn for antimicrobial coverage. Urinalysis revealed mild leukocyte esterase, but I do not think that this is the reason he has the elevated lactic acid. This could just simply be due to his uncontrolled nausea and vomiting. We cannot find a source of infection while here in the emergency department. We did admit this patient while he is on broad-spectrum antibiotic coverage with Zosyn. Hospitalists agreed to accept the patient for admission. Patient was hemodynamically stable and nausea and vomiting were under control at time of admission. Chest X-Ray 09/17/17 11:38 IMPRESSION: No acute cardiopulmonary disease. D/ / Shahzad Shipman MD / Shahzad Shipman MD Interpreting Provider: Shahzad Shipman MD Abdomen/Pelvis CT 09/17/17 14:53 IMPRESSION: No acute abnormality of the abdomen or pelvis. D/ / Bimal Givens MD / Bimal Givens MD Interpreting Provider: Bimal Givens MD - Lab Data Result diagrams: 09/17/17 12:13 09/17/17 14:46 Lab Results 09/17/17 09/17/17 09/17/17 Range/Units 12:13 12:13 12:13 WBC 8.1 (4.3-11.1) K/mcL RBC 5.24 (4.19-5.50) M/mcL Hgb 16.5 (12.9-16.9) g/dL Hct 45.4 (37.5-50.1) % MCV 86.6 (83.0-100.0) fL MCH 31.5 (28.0-33.3) pg MCHC 36.3 H (31.6-35.5) g/dL RDW 13.0 (11.5-14.5) % Plt Count 355 (140-400) K/mcL MPV 9.3 L (9.4-12.4) fL Immature Gran % 0.7 (0-4) % Seg Neutrophils % 69.8 % Lymphocytes % 19.9 % Monocytes % 8.3 % Eosinophils % 0.9 % Basophils % 0.4 % Neutrophils # 5.7 (1.6-8.9) K/mcL Lymphocytes # 1.6 (0.6-4.6) K/mcL Monocytes # 0.7 (0.0-1.3) K/mcL Eosinophils # 0.1 (0.0-0.6) K/mcL Basophils # 0.0 (0.0-0.2) K/mcL Immature Plt Fraction 2.4 (1.1-6.1) % PT 12.0 (9.4-12.1) Seconds INR 1.1 APTT 47.6 H (26.0-36.0) Seconds Sodium (136-145) mEq/L Potassium (3.5-4.5) mEq/L Chloride (98-109) mEq/L Carbon Dioxide (19-29) mEq/L BUN (8-26) mg/dL Creatinine (0.72-1.25) mg/dL Est GFR ( Amer) (> 60) Est GFR (Non-Af Amer) (> 60) BUN/Creatinine Ratio (6-26) Glucose (70-99) mg/dL Calculated Osmolality (280-300) Lactic Acid (0.5-2.2) mmol/L Calcium (8.6-10.8) mg/dL Phosphorus (2.3-4.7) mg/dL Magnesium (1.6-2.6) mg/dL Total Bilirubin (0.2-1.2) mg/dL Direct Bilirubin (0.0-0.5) mg/dL Indirect Bilirubin (0.0-1.2) mg/dL AST (5-34) Units/L ALT (0-55) Units/L Alkaline Phosphatase (38-126) Units/L Troponin I (0-0.03) ng/mL Serum Total Protein (6.0-8.3) g/dL Albumin (3.5-5.0) g/dL Globulin (2.4-3.5) g/dL Albumin/Globulin Ratio (1.1-2.2) Lipase (8-78) Units/L Urine Color (Yellow) Urine Clarity (Clear) Urine pH (5.0-8.0) pH Units Ur Specific [place] (1.010-1.025) Urine Protein (Neg-Trace) mg/dL Urine Glucose (UA) (Normal) mg/dL Urine Ketones (Negative) mg/dL Urine Blood (Negative) Urine Nitrite (Negative) Urine Bilirubin (Negative) Urine Urobilinogen (Normal) mg/dL Ur Leukocyte Esterase (Negative) Urine Microscopic RBC (0-3) per hpf Urine Microscopic WBC (0-3) per hpf Ur Squamous Epith Cells (None-Few) per lpf Urine Bacteria (None-Few) per hpf Hyaline Casts (None-Few) per lpf Ur Culture Indicated? (NO) Specimen Rejected Hemolyzed 09/17/17 09/17/17 09/17/17 Range/Units 13:10 13:31 13:31 WBC (4.3-11.1) K/mcL RBC (4.19-5.50) M/mcL Hgb (12.9-16.9) g/dL Hct (37.5-50.1) % MCV (83.0-100.0) fL MCH (28.0-33.3) pg MCHC (31.6-35.5) g/dL RDW (11.5-14.5) % Plt Count (140-400) K/mcL MPV (9.4-12.4) fL Immature Gran % (0-4) % Seg Neutrophils % % Lymphocytes % % Monocytes % % Eosinophils % % Basophils % % Neutrophils # (1.6-8.9) K/mcL Lymphocytes # (0.6-4.6) K/mcL Monocytes # (0.0-1.3) K/mcL Eosinophils # (0.0-0.6) K/mcL Basophils # (0.0-0.2) K/mcL Immature Plt Fraction (1.1-6.1) % PT (9.4-12.1) Seconds INR APTT (26.0-36.0) Seconds Sodium (136-145) mEq/L Potassium (3.5-4.5) mEq/L Chloride (98-109) mEq/L Carbon Dioxide (19-29) mEq/L BUN (8-26) mg/dL Creatinine (0.72-1.25) mg/dL Est GFR ( Amer) (> 60) Est GFR (Non-Af Amer) (> 60) BUN/Creatinine Ratio (6-26) Glucose (70-99) mg/dL Calculated Osmolality (280-300) Lactic Acid 5.2 H* (0.5-2.2) mmol/L Calcium (8.6-10.8) mg/dL Phosphorus (2.3-4.7) mg/dL Magnesium (1.6-2.6) mg/dL Total Bilirubin (0.2-1.2) mg/dL Direct Bilirubin (0.0-0.5) mg/dL Indirect Bilirubin (0.0-1.2) mg/dL AST (5-34) Units/L ALT (0-55) Units/L Alkaline Phosphatase (38-126) Units/L Troponin I 0.03 (0-0.03) ng/mL Serum Total Protein (6.0-8.3) g/dL Albumin (3.5-5.0) g/dL Globulin (2.4-3.5) g/dL Albumin/Globulin Ratio (1.1-2.2) Lipase (8-78) Units/L Urine Color Yellow (Yellow) Urine Clarity Slightly Hazy (Clear) Urine pH 6.0 (5.0-8.0) pH Units Ur Specific [place] 1.017 (1.010-1.025) Urine Protein 100 H (Neg-Trace) mg/dL Urine Glucose (UA) Normal (Normal) mg/dL Urine Ketones Negative (Negative) mg/dL Urine Blood Negative (Negative) Urine Nitrite Negative (Negative) Urine Bilirubin Negative (Negative) Urine Urobilinogen Normal (Normal) mg/dL Ur Leukocyte Esterase Trace H (Negative) Urine Microscopic RBC 0-3 (0-3) per hpf Urine Microscopic WBC 5-15 H (0-3) per hpf Ur Squamous Epith Cells Many H (None-Few) per lpf Urine Bacteria None Seen (None-Few) per hpf Hyaline Casts Few (None-Few) per lpf Ur Culture Indicated? YES A (NO) Specimen Rejected 09/17/17 09/17/17 09/17/17 Range/Units 13:31 14:46 15:50 WBC (4.3-11.1) K/mcL RBC (4.19-5.50) M/mcL Hgb (12.9-16.9) g/dL Hct (37.5-50.1) % MCV (83.0-100.0) fL MCH (28.0-33.3) pg MCHC (31.6-35.5) g/dL RDW (11.5-14.5) % Plt Count (140-400) K/mcL MPV (9.4-12.4) fL Immature Gran % (0-4) % Seg Neutrophils % % Lymphocytes % % Monocytes % % Eosinophils % % Basophils % % Neutrophils # (1.6-8.9) K/mcL Lymphocytes # (0.6-4.6) K/mcL Monocytes # (0.0-1.3) K/mcL Eosinophils # (0.0-0.6) K/mcL Basophils # (0.0-0.2) K/mcL Immature Plt Fraction (1.1-6.1) % PT (9.4-12.1) Seconds INR APTT (26.0-36.0) Seconds Sodium 130 L 130 L (136-145) mEq/L Potassium 3.3 L 3.3 L (3.5-4.5) mEq/L Chloride 96 L 99 (98-109) mEq/L Carbon Dioxide 21 20 (19-29) mEq/L BUN 39 H 38 H (8-26) mg/dL Creatinine 2.35 H 1.98 H (0.72-1.25) mg/dL Est GFR ( Amer) 34 L 42 L (> 60) Est GFR (Non-Af Amer) 28 L 34 L (> 60) BUN/Creatinine Ratio 17 19 (6-26) Glucose 181 H 130 H (70-99) mg/dL Calculated Osmolality 284 281 (280-300) Lactic Acid 2.2 (0.5-2.2) mmol/L Calcium 10.4 10.0 (8.6-10.8) mg/dL Phosphorus (2.3-4.7) mg/dL Magnesium (1.6-2.6) mg/dL Total Bilirubin 0.8 0.7 (0.2-1.2) mg/dL Direct Bilirubin 0.3 (0.0-0.5) mg/dL Indirect Bilirubin 0.5 (0.0-1.2) mg/dL AST 26 25 (5-34) Units/L ALT 21 20 (0-55) Units/L Alkaline Phosphatase 159 H 148 H (38-126) Units/L Troponin I (0-0.03) ng/mL Serum Total Protein 10.4 H 9.6 H (6.0-8.3) g/dL Albumin 4.6 4.3 (3.5-5.0) g/dL Globulin 5.8 H 5.3 H (2.4-3.5) g/dL Albumin/Globulin Ratio 0.8 L 0.8 L (1.1-2.2) Lipase 20 (8-78) Units/L Urine Color (Yellow) Urine Clarity (Clear) Urine pH (5.0-8.0) pH Units Ur Specific [place] (1.010-1.025) Urine Protein (Neg-Trace) mg/dL Urine Glucose (UA) (Normal) mg/dL Urine Ketones (Negative) mg/dL Urine Blood (Negative) Urine Nitrite (Negative) Urine Bilirubin (Negative) Urine Urobilinogen (Normal) mg/dL Ur Leukocyte Esterase (Negative) Urine Microscopic RBC (0-3) per hpf Urine Microscopic WBC (0-3) per hpf Ur Squamous Epith Cells (None-Few) per lpf Urine Bacteria (None-Few) per hpf Hyaline Casts (None-Few) per lpf Ur Culture Indicated? (NO) Specimen Rejected 09/17/17 Range/Units 15:50 WBC (4.3-11.1) K/mcL RBC (4.19-5.50) M/mcL Hgb (12.9-16.9) g/dL Hct (37.5-50.1) % MCV (83.0-100.0) fL MCH (28.0-33.3) pg MCHC (31.6-35.5) g/dL RDW (11.5-14.5) % Plt Count (140-400) K/mcL MPV (9.4-12.4) fL Immature Gran % (0-4) % Seg Neutrophils % % Lymphocytes % % Monocytes % % Eosinophils % % Basophils % % Neutrophils # (1.6-8.9) K/mcL Lymphocytes # (0.6-4.6) K/mcL Monocytes # (0.0-1.3) K/mcL Eosinophils # (0.0-0.6) K/mcL Basophils # (0.0-0.2) K/mcL Immature Plt Fraction (1.1-6.1) % PT (9.4-12.1) Seconds INR APTT (26.0-36.0) Seconds Sodium (136-145) mEq/L Potassium (3.5-4.5) mEq/L Chloride (98-109) mEq/L Carbon Dioxide (19-29) mEq/L BUN (8-26) mg/dL Creatinine (0.72-1.25) mg/dL Est GFR ( Amer) (> 60) Est GFR (Non-Af Amer) (> 60) BUN/Creatinine Ratio (6-26) Glucose (70-99) mg/dL Calculated Osmolality (280-300) Lactic Acid (0.5-2.2) mmol/L Calcium (8.6-10.8) mg/dL Phosphorus 4.0 (2.3-4.7) mg/dL Magnesium 2.0 (1.6-2.6) mg/dL Total Bilirubin (0.2-1.2) mg/dL Direct Bilirubin (0.0-0.5) mg/dL Indirect Bilirubin (0.0-1.2) mg/dL AST (5-34) Units/L ALT (0-55) Units/L Alkaline Phosphatase (38-126) Units/L Troponin I (0-0.03) ng/mL Serum Total Protein (6.0-8.3) g/dL Albumin (3.5-5.0) g/dL Globulin (2.4-3.5) g/dL Albumin/Globulin Ratio (1.1-2.2) Lipase (8-78) Units/L Urine Color (Yellow) Urine Clarity (Clear) Urine pH (5.0-8.0) pH Units Ur Specific [place] (1.010-1.025) Urine Protein (Neg-Trace) mg/dL Urine Glucose (UA) (Normal) mg/dL Urine Ketones (Negative) mg/dL Urine Blood (Negative) Urine Nitrite (Negative) Urine Bilirubin (Negative) Urine Urobilinogen (Normal) mg/dL Ur Leukocyte Esterase (Negative) Urine Microscopic RBC (0-3) per hpf Urine Microscopic WBC (0-3) per hpf Ur Squamous Epith Cells (None-Few) per lpf Urine Bacteria (None-Few) per hpf Hyaline Casts (None-Few) per lpf Ur Culture Indicated? (NO) Specimen Rejected Attestation Statement - Attestation Attestation: Patient was seen with resident physician. I reviewed the history, physical, assessment and plan, and agree with the findings. I also personally evaluated this patient and had [id number] time with this patient. 62-year-old male presents to the emergency department with chief complaint of nausea vomiting diarrhea. Has a history of colostomy and studies have been cramping all over. Patient's a poor historian he is literally pacing around the room during examination and panting. Very little history could be obtained from talking to the patient. Vital signs reveal tachycardia stable blood pressure. ENT appears unremarkable. Heart mildly tachycardic with regular rhythm. Lungs are clear abdomen is diffusely tender without guarding or rigidity. Neurologically patient is walking and appears alert and oriented but uncomfortable. ED course patient will be started on aggressive therapy for not just pain management but also figure out what is causing his symptoms. IV fluid hydration and CT scans of be ordered. Laboratory testing revealed acute kidney injury. This was somewhat improved on repeat test after the patient been hydrated. His pain was controlled. CT scan did not show any other acute abnormalities. Chest x-ray did not show any abnormalities either. Patient was started on antibiotics empirically. Conservative this patient is that he may be moving toward sepsis especially considering how uncomfortable he was when he arrived and his lactic acid level. Unfortunately did not determine a cause or location for that. We will start on IV antibiotics and have him admitted to the hospitalist service for further evaluation and treatment. Agree with the resident physician assessment and plan.
[2017-09-17 12:21] LABS: Basophils % 0.4 %; Eosinophils # 0.1 K/mcL (0.0-0.6); Eosinophils % 0.9 %; Hematocrit 45.4 % (37.5-50.1); Hemoglobin 16.5 g/dL (12.9-16.9); Immature Granulocytes % 0.7 % (0-4); Immature Platelets 2.4 % (1.1-6.1); Lymphocytes # 1.6 K/mcL (0.6-4.6); Lymphocytes % 19.9 %; Mean Corpuscular HGB Conc 36.3 g/dL (31.6-35.5); Mean Corpuscular Hemoglobin 31.5 pg (28.0-33.3); Mean Corpuscular Volume 86.6 fL (83.0-100.0); Mean Platelet Volume 9.3 fL (9.4-12.4); Monocytes # 0.7 K/mcL (0.0-1.3); Monocytes % 8.3 %; Neutrophils # 5.7 K/mcL (1.6-8.9); Platelet Count 355 K/mcL (140-400); Red Blood Count 5.24 M/mcL (4.19-5.50); Segmented Neutrophils % 69.8 %
[2017-09-17 12:25] LABS: INR 1.1
[2017-09-17 12:27] LABS: Activated Partial Thrombo Time 47.6 Seconds (26.0-36.0)
[2017-09-17 13:23] LABS: Bilirubin,Urine Negative (Negative); Blood,Urine Negative (Negative); Color,Urine Yellow (Yellow); Glucose,Urine (UA) Normal (Normal); Ketones,Urine Negative (Negative); Leukocyte Esterase,Urine Trace (Negative); Nitrite,Urine Negative (Negative); Protein,Urine 100 mg/dL (Neg-Trace); Specific Gravity,Urine 1.017 (1.010-1.025); Urobilinogen,Urine Normal (Normal)
[2017-09-17 13:33] LABS: Bacteria,Urine None Seen per hpf (None-Few); Clarity,Urine Slightly Hazy (Clear); Hyaline Casts,Urine Few per lpf (None-Few); RBC,Urine 0-3 per hpf (0-3); Squamous Epithelial Cell,Urine Many per lpf (None-Few)
[2017-09-17] MEDS ORDERED: Pantoprazole 40 MG in 0.9 % Sodium Chloride Mini Bag 100 ML IVC SCH (14:30)
[2017-09-17 14:34] LABS: Albumin 4.6 g/dL (3.5-5.0); Albumin/Globulin Ratio 0.8 (1.1-2.2); Bilirubin,Direct 0.3 mg/dL (0.0-0.5); Bilirubin,Indirect 0.5 mg/dL (0.0-1.2); Bilirubin,Total 0.8 mg/dL (0.2-1.2); Calcium 10.4 mg/dL (8.6-10.8); Globulin 5.8 g/dL (2.4-3.5); Potassium 3.3 mEq/L (3.5-4.5); Total Protein 10.4 g/dL (6.0-8.3)
[2017-09-17] MEDS ORDERED: Cefepime HCl 2,000 MG in D5% in Water (Mini-Bag+) 100 ML IVPB ONE (14:58)
[2017-09-17 15:07] LABS: Albumin 4.3 g/dL (3.5-5.0); Albumin/Globulin Ratio 0.8 (1.1-2.2); Bilirubin,Total 0.7 mg/dL (0.2-1.2); Globulin 5.3 g/dL (2.4-3.5); Potassium 3.3 mEq/L (3.5-4.5); Total Protein 9.6 g/dL (6.0-8.3)
[2017-09-17] MEDS ORDERED: Cefepime HCl 2,000 MG in Water for inj. (sterile) 20 ML IVP ONE (15:59)
[2017-09-17] MEDS ORDERED: Pantoprazole 80 MG in 0.9 % Sodium Chloride 250 ML IVC SCH (16:15)
[2017-09-17] MEDS ORDERED: Ondansetron 4 MG/2 ML VIAL IVP PRN (21:53)
[2017-09-17] MEDS ORDERED: Naloxone 0.4 MG/ML INJ IVP PRN (21:53)
[2017-09-17] MEDS ORDERED: GuaiFENesin Liq 200 MG/10 ML UDC PO PRN (21:55)
[2017-09-17] MEDS ORDERED: traZODone 50 MG TABLET PO PRN (21:55)
[2017-09-17] MEDS ORDERED: Melatonin 3 MG TABLET PO PRN (21:55)
[2017-09-17] MEDS ORDERED: hydrOXYzine pamoate 25 MG CAPSULE PO PRN (21:55)
[2017-09-17] MEDS ORDERED: 0.9 % Sodium Chloride w KCl 20 MEQ/1,000 ML MLS IVC SCH (22:00)
--- NOTE | 2017-09-17 22:01 | Internal Med History&Physical ---
Date of Encounter: 09/17/17 Time of Encounter: 21:58 Assessment and Plan (1) CATRACHITO (acute kidney injury) Current visit: Yes Status: Acute 2/2 to diarrhea, fluid loss check stool studies, viral panel suspect this to be related to viral enteritis supportive care with IVF, IV anti-emetics trend lactate, ED sent blood cx hold antibiotics unless further hospitalization course dictates (2) Hyponatremia Current visit: No Status: Acute related to volume depletion, replete (3) Diarrhea Current visit: No Status: Acute as above supportive are, stool studies Qualifiers: Diarrhea type: presumed infectious Qualified Code(s): A09 - Infectious gastroenteritis and colitis, unspecified Internal Medicine - H&P: HPI Chief complaint: N/V/D History of present illness: Mr. Mccauley is a 62 year old male who presents with profuse N/V/D since yesterday. Admitted for CATRACHITO, lactic acidosis, anorexia needing IV fluids. He has a hx of colostomy around 2013 after having a complicated episode of radiation induced complication for prostate cancer. He had some of his bowels resection with end colostomy as a result. Since yesterday , he had experienced increased diarrhea through stoma output approx 10 x bag change daily. Associated with nausea and emesis. He feels dehydrated 2/2 to fluid loss. Associated with non-specific all over stomach cramps. He reported that he had the cold last week. Because of these symptoms, he is unable to tolerate PO intake. XR/XR chest 1V portable IMPRESSION: No evidence of acute cardiopulmonary disease. XR/XR chest 1V portable IMPRESSION: No acute cardiopulmonary disease. Past Med Surg Social Fam HX - Past Medical History Medical history: cancer, CHF, COPD, diabetes, GERD, hepatitis, hypertension, myocardial infarction, other Psychiatric history: anxiety, depression, PTSD - Past Surgical History Surgical History: colostomy - Social History Smoking Status: Current every day smoker Smokeless Tobacco Status: No Alcohol use: heavy Drug use: cocaine, opiates Internal Medicine - H&P: Meds Tamsulosin [Flomax] 0.8 mg PO HS 12/31/15 [History] Finasteride [Proscar] 5 mg PO HS 08/17/16 [History] Melatonin 3 mg PO HS PRN 08/17/16 [History] Mesalamine [Canasa] 1,000 mg RC HS 08/17/16 [History] Naproxen [Naprosyn] 500 mg PO BID 08/17/16 [History] Trazodone HCl 100 mg PO HS PRN 08/17/16 [History] Metoprolol XL (24 HR) Succ [Toprol Xl] 12.5 mg PO DAILY 30 Days tab.er.24h 01/29 [Rx] Carboxymethylcellulose Sodium [Refresh Tears] 1 drop BOTH EYES BID PRN 06/12/17 [History] Cholecalciferol (D-3) [Vitamin D] 2,000 unit PO DAILY 06/12/17 [History] Gabapentin [Neurontin] 800 mg PO TID 06/12/17 [History] Omeprazole [PriLOSEC] 20 mg PO HS 06/12/17 [History] Sildenafil Citrate [Viagra] 100 mg PO DAILY PRN 06/12/17 [History] Adhesive Remover [Adhesive Remover Wipes] 1 each AD 09/17/17 [History] Aloe Vera/Collagen [Aloe [place] Cleansing Foam] 1 appl TP AD 09/17/17 [History] Aspirin 81 mg PO DAILY 09/17/17 [History] Atorvastatin [Lipitor] 40 mg PO HS 09/17/17 [History] Dimethicone/Petrolatum,White [Sensi-Care Moisturizing 2 Crm] 1 appl TP AD [History] Guaifenesin [Tab Tussin] 400 mg PO TID PRN 09/17/17 [History] Loperamide [Imodium] 2 mg PO PER PKG DI PRN 09/17/17 [History] Sertraline [Zoloft] 100 mg PO DAILY 09/17/17 [History] hydrOXYzine HCl [Hydroxyzine HCl] 25 mg PO TID PRN 09/17/17 [History] 3 Allergy/AdvReac Type Severity Reaction Status Date / Time etodolac Allergy Swelling Verified 09/17/17 11:11 of Lip/Tongue/Throat Penicillins Allergy See Verified 09/17/17 11:11 Comments sulfamethoxazole Allergy See Verified 09/17/17 11:11 [From Bactrim] Comments Tetracycline Allergy See Verified 09/17/17 11:11 Comments trimethoprim [From Bactrim] Allergy See Verified 09/17/17 11:11 Comments Amoxicillin AdvReac See Verified 09/17/17 17:26 Comments milk AdvReac See Verified 09/17/17 17:26 Comments tramadol AdvReac See Verified 09/17/17 17:26 Comments All Systems PM: A 10-system review of systems was performed and is negative for pertinent findings except as documented above in the HPI. Review of systems: ROS 14 point review of systems reviewed as best as possible given presentation. Pertinent positive or negative as per HPI or otherwise reviewed as negative - Constitutional Vitals: Temp Pulse Resp BP Pulse Ox 98.8 F 77 20 125/78 98 09/17/17 19:25 09/17/17 19:25 09/17/17 19:25 09/17/17 19:25 09/17/17 19:25 Exam: General - AAO x 3 Psych - Appropriate affect/speech. No agitation Heart - Sinus. RRR. S1 and S2 present. No added HS/murmurs appreciated. No elevated JVD appreciated. Lung - Adequate air entry b/l, No crackles/wheezes appreciated GI - Soft, non-tender. Ostomy with liquid output No hepatosplenomegaly/ascites. BS+ - No CVA/suprapubic tenderness or palpable bladder distension Skin - Intact. No rash/petechiae/ecchymosis. Warm extremities MSK - Joints with normal ROM. No joint swellings Internal Med - H&P Results - Labs CBC & Chem 7: 09/17/17 12:13 09/17/17 14:46
[2017-09-18] MEDS ORDERED: Pantoprazole 80 MG in 0.9 % Sodium Chloride 250 ML IVC SCH (02:45)
[2017-09-18 04:13] LABS: Basophils % 0.5 %; Eosinophils # 0.2 K/mcL (0.0-0.6); Eosinophils % 2.8 %; Hematocrit 36.9 % (37.5-50.1); Immature Granulocytes % 0.4 % (0-4); Lymphocytes # 2.9 K/mcL (0.6-4.6); Lymphocytes % 38.9 %; Mean Corpuscular HGB Conc 34.4 g/dL (31.6-35.5); Mean Corpuscular Hemoglobin 31.1 pg (28.0-33.3); Mean Corpuscular Volume 90.4 fL (83.0-100.0); Mean Platelet Volume 9.3 fL (9.4-12.4); Monocytes # 1.1 K/mcL (0.0-1.3); Monocytes % 14.9 %; Neutrophils # 3.2 K/mcL (1.6-8.9); Platelet Count 243 K/mcL (140-400); Red Blood Count 4.08 M/mcL (4.19-5.50); Red Cell Distribution Width 13.2 % (11.5-14.5); Segmented Neutrophils % 42.5 %
[2017-09-18 04:14] LABS: Hemoglobin 12.7 g/dL (12.9-16.9)
[2017-09-18 04:36] LABS: Alanine Aminotransferase 16 Units/L (0-55); Albumin/Globulin Ratio 0.8 (1.1-2.2); Alkaline Phosphatase 108 Units/L (38-126); Aspartate Amino Transferase 23 Units/L (5-34); BUN/Creatinine Ratio 30 (6-26); Bilirubin,Direct 0.2 mg/dL (0.0-0.5); Bilirubin,Indirect 0.4 mg/dL (0.0-1.2); Bilirubin,Total 0.6 mg/dL (0.2-1.2); Blood Urea Nitrogen 29 mg/dL (8-26); Calcium 8.5 mg/dL (8.6-10.8); Carbon Dioxide 17 mEq/L (19-29); Chloride 107 mEq/L (98-109); Glucose 94 mg/dL (70-99); Magnesium 1.9 mg/dL (1.6-2.6); Osmolality,Calculated 284 (280-300); Potassium 3.7 mEq/L (3.5-4.5); Sodium 134 mEq/L (136-145); eGFR For African Americans > 60 (> 60); eGFR For Non-African Americans > 60 (> 60)
[2017-09-18 04:38] LABS: Albumin 3.3 g/dL (3.5-5.0); Total Protein 7.3 g/dL (6.0-8.3)
[2017-09-18] MEDS ORDERED: *HR* Enoxaparin 30 MG/0.3 ML SYRINGE SQ SCH (06:00)
[2017-09-18] MEDS ORDERED: D5% in 0.2% NACL w KCl 1,000 ML IVC SCH (08:00)
[2017-09-18] MEDS ORDERED: Metoprolol XL (24 HR) Succ 25 MG TAB.ER.24H PO SCH (09:00)
[2017-09-18] MEDS ORDERED: Aspirin 81 MG TAB.CHEW PO SCH (09:00)
[2017-09-18] MEDS ORDERED: Cholecalciferol (D-3) 1,000 UNIT TABLET PO SCH (09:00)
[2017-09-18] MEDS ORDERED: Gabapentin 400 MG CAPSULE PO SCH (09:00)
[2017-09-18 10:58] VITALS: BP 106/69
--- NOTE | 2017-09-18 12:49 | Discharge Summary ---
Date of Encounter: 09/18/17 Time of Encounter: 12:46 - Discharge Diagnosis (1) CATRACHITO (acute kidney injury) Priority: Primary Status: Acute (2) Diarrhea Priority: Secondary Status: Acute Comments: Likely viral gastroenteritis. Cdiff negative Qualifiers: Diarrhea type: unspecified type Qualified Code(s): R19.7 - Diarrhea, unspecified (3) Hyponatremia Priority: Secondary Status: Acute - Discharge Medications Home Medications: Tamsulosin [Flomax] 0.8 mg PO HS 12/31/15 [History] Finasteride [Proscar] 5 mg PO HS 08/17/16 [History] Melatonin 3 mg PO HS PRN 08/17/16 [History] Mesalamine [Canasa] 1,000 mg RC HS 08/17/16 [History] Trazodone HCl 100 mg PO HS PRN 08/17/16 [History] Metoprolol XL (24 HR) Succ [Toprol Xl] 12.5 mg PO DAILY 30 Days tab.er.24h 01/29 [Rx] Carboxymethylcellulose Sodium [Refresh Tears] 1 drop BOTH EYES BID PRN 06/12/17 [History] Cholecalciferol (D-3) [Vitamin D] 2,000 unit PO DAILY 06/12/17 [History] Gabapentin [Neurontin] 800 mg PO TID 06/12/17 [History] Omeprazole [PriLOSEC] 20 mg PO HS 06/12/17 [History] Sildenafil Citrate [Viagra] 100 mg PO DAILY PRN 06/12/17 [History] Adhesive Remover [Adhesive Remover Wipes] 1 each AD 09/17/17 [History] Aloe Vera/Collagen [Aloe [place] Cleansing Foam] 1 appl TP AD 09/17/17 [History] Aspirin 81 mg PO DAILY 09/17/17 [History] Atorvastatin [Lipitor] 40 mg PO HS 09/17/17 [History] Dimethicone/Petrolatum,White [Sensi-Care Moisturizing 2 Crm] 1 appl TP AD [History] Guaifenesin [Tab Tussin] 400 mg PO TID PRN 09/17/17 [History] Loperamide [Imodium] 2 mg PO PER PKG DI PRN 09/17/17 [History] Sertraline [Zoloft] 100 mg PO DAILY 09/17/17 [History] hydrOXYzine HCl [Hydroxyzine HCl] 25 mg PO TID PRN 09/17/17 [History] Allergies/Adverse Reactions: 3 Allergy/AdvReac Type Severity Reaction Status Date / Time etodolac Allergy Swelling Verified 09/17/17 11:11 of Lip/Tongue/Throat Penicillins Allergy See Verified 09/17/17 11:11 Comments sulfamethoxazole Allergy See Verified 09/17/17 11:11 [From Bactrim] Comments Tetracycline Allergy See Verified 09/17/17 11:11 Comments trimethoprim [From Bactrim] Allergy See Verified 09/17/17 11:11 Comments Amoxicillin AdvReac See Verified 09/17/17 17:26 Comments milk AdvReac See Verified 09/17/17 17:26 Comments tramadol AdvReac See Verified 09/17/17 17:26 Comments Date of admission: 09/17/17 21:54 Primary care physician: PCP [facility]TA Discharging clinician: Cheryl Gutierrez Anticipated date of discharge: 09/18/17 - Patient Status Disposition: Home, Self-Care Condition: Good Functional capacity at discharge: independent ambulation Overall status at discharge: patient is progressing back to baseline - Discharge Instructions Instructions: Dehydration (DC), Colostomy Care (DC) [facility] - 09/28/17 11:00 am (in 1-2 weeks) - Diet and Activity Activity: increase activity as tolerated Diet: advance to your usual diet, low fat, low cholesterol, low salt diet Hospital course: Mr. Mccauley is a 62 year old male patient with history of colostomy, prostate cancer who presented to the ED with intractable nausea and vomiting along with diarrhea. He was treated supportively with antiemetics and his stools were checked for Cdiff. They were negative. He had acute kidney injury on presentation which has resolved with hydration. He is now tolerating diet well and is stable for discharge. He may have had an episode of viral gastroenteritis or food poisoning that has now resolved. - Time Spent with Patient Total time spent providing and/or coordinating discharge services: Less than 30 minutes (25 min) - Constitutional Vitals: Temp Pulse Resp BP Pulse Ox 96.7 F L 66 16 106/69 98 09/18/17 10:56 09/18/17 10:56 09/18/17 10:56 09/18/17 10:56 09/18/17 10:56 General appearance: Present: cooperative, A&O X 3, answers questions appropriately - Respiratory Respiratory exam: Present: CTAB. Absent: accessory muscle use, rales, rhonchi, wheezes - GI/Abdominal GI/Abdominal exam: Present: normal bowel sounds, soft, no peritoneal signs. Absent: distended, tenderness - Extremities Exam Extremities exam: Present: warm, radial pulses palpable and symmetrical. Absent : calf tenderness, cyanotic, pedal edema - Neurological Exam Neurological exam: Present: alert, CN II-XII intact, oriented X3, no focal deficits. Absent: facial droop, speech deficit
[2017-09-18] MEDS ORDERED: Finasteride 5 MG TABLET PO SCH (21:00)
[2017-09-19] MEDS ORDERED: *HR* Enoxaparin 40 MG/0.4 ML SYRINGE SQ SCH (06:00)
--- NOTE | 2017-09-20 12:39 | Electrocardiograph Report ---
[place] [id number] Test Date: 2017-09-17 Pat Name: Aristides Mccauley Department: 103 Room: [id number] Gender: M [employer]ing [employer] Automatic: ELDON : 1955 Requested By: Macario Hansen Order Number: [id number] Reading MD: Scott Wiley MD Measurements Intervals [place] Rate: 90 P: 76 SD: 152 QRS: 17 QRSD: 102 T: 127 QT: 387 QTc: 435 Interpretive Statements SINUS RHYTHM LEFT ATRIAL ENLARGEMENT LEFT VENTRICULAR HYPERTROPHY AND ST-T CHANGE POSSIBLE LATERAL MYOCARDIAL INFARCTION, OF INDETERMINATE AGE Electronically Signed On 09-20-2017 12:38:19 EST by Scott Wiley MD
[2017-09-21 08:12] LABS: Ova & Parasite Stain NEGATIVE (Negative)
== END 2017-09-18 16:19 | disposition home or self-care (01) | DRG 683 ==
LOC: 2NENU 11:04 → EMEROO 11:04 → 2NENU 16:59
PROVIDERS: ADMIT Hospitalist; ATTEND Internal Medicine

== ENCOUNTER 2017-10-23 10:25 | Observation (INO) ==
[2017-10-23] MEDS ORDERED: 0.9 % Sodium Chloride 1,000 ML IVC ONE ×2 (10:28→12:36)
[2017-10-23] MEDS ORDERED: *HR* HYDROmorphone (PF) 1 MG/ML SYRINGE IVP ONE (10:28)
[2017-10-23] MEDS ORDERED: Ondansetron 4 MG/2 ML VIAL IVP ONE (10:28)
--- NOTE | 2017-10-23 10:38 | Emergency Department Note ---
Disposition Clinical Impression: Nausea vomiting and diarrhea, Suicidal ideation, Hyponatremia, Positive urine drug screen Abdominal pain Qualifiers: Abdominal location: generalized Qualified Code(s): R10.84 - Generalized abdominal pain Disposition: Admitted As Inpatient Condition: Good Reasons to Return/Additional Instructions: Please take the Zofran or Phenergan as prescribed as needed for nausea and vomiting. Please follow-up with your primary care provider in the next 2-3 days for reevaluation. Please drink plenty of fluids to maintain hydration. Please return to the ER if worsening of symptoms or any concerns. Prescriptions: Ondansetron ODT [Zofran ODT] 4 mg SL Q6HR PRN #14 tab.rapdis PRN Reason: Nausea And Vomiting Promethazine [Phenergan] 25 mg PO Q8HR PRN #14 tablet PRN Reason: Nausea And Vomiting [facility] Care Provider[facility] - Forms: ED Satisfaction Letter, Work/School Release Time of Disposition: 14:14 Abdominal Pain HPI - General Chief Complaint: ED Abdominal Pain Stated Complaint: N/V, abd pain Time Seen by Provider: 10/23/17 10:28 Source: patient Mode of arrival: EMS Limitations: no limitations Nursing Notes Reviewed: Yes Vital Signs Reviewed: Yes - History of Present Illness HPI Narrative: 62-year-old male history of prostate cancer treated with radiation with resulting colonic resection and colostomy placement who presents to the ER via EMS due to nausea vomiting abdominal pain. Patient reports 3 days of generalized abdominal pain. States that he has had this in the past and believes he has a virus. He reports nonbloody nonbilious emesis. He has also had liquid ostomy output. Denies fevers. No dysuria or hematuria. No recent abdominal surgeries. He is not currently treated for his prostate cancer. No other complaints. Pt Subjective Complaint: abdominal pain Onset (ago): day(s) Consistency: constant Location: diffuse Pain Severity: severe Radiation: none Migration to: no migration Improves with: nothing Worsens with: nothing Context: history of similar episodes Associated symptoms: Reports: nausea, vomiting. Denies: diarrhea, fever Treatments prior to arrival: none - Related Data Home Medications Medication Instructions Recorded Confirmed Tamsulosin [Flomax] 0.8 mg PO HS 12/31/15 09/17/17 Finasteride [Proscar] 5 mg PO HS 08/17/16 09/17/17 Melatonin 3 mg PO HS PRN 08/17/16 09/17/17 Mesalamine [Canasa] 1,000 mg RC HS 08/17/16 09/17/17 Trazodone HCl 100 mg PO HS PRN 08/17/16 09/17/17 Carboxymethylcellulose Sodium 1 drop BOTH EYES BID PRN 06/12/17 09/17/17 [Refresh Tears] Cholecalciferol (D-3) [Vitamin D] 2,000 unit PO DAILY 06/12/17 09/17/17 Gabapentin [Neurontin] 800 mg PO TID 06/12/17 09/17/17 Omeprazole [PriLOSEC] 20 mg PO HS 06/12/17 09/17/17 Sildenafil Citrate [Viagra] 100 mg PO DAILY PRN 06/12/17 09/17/17 Adhesive Remover [Adhesive Remover 1 each AD 09/17/17 09/17/17 Wipes] Aloe Vera/Collagen [Aloe [place] 1 appl TP AD 09/17/17 09/17/17 Cleansing Foam] Aspirin 81 mg PO DAILY 09/17/17 09/17/17 Atorvastatin [Lipitor] 40 mg PO HS 09/17/17 09/17/17 Dimethicone/Petrolatum,White 1 appl TP AD 09/17/17 09/17/17 [Sensi-Care Moisturizing 2 Crm] Guaifenesin [Tab Tussin] 400 mg PO TID PRN 09/17/17 09/17/17 Loperamide [Imodium] 2 mg PO PER PKG DI PRN 09/17/17 09/17/17 Sertraline [Zoloft] 100 mg PO DAILY 09/17/17 09/17/17 hydrOXYzine HCl [Hydroxyzine HCl] 25 mg PO TID PRN 09/17/17 09/17/17 Previous Rx's Medication Instructions Recorded Metoprolol XL (24 HR) Succ [Toprol 12.5 mg PO DAILY 30 Days 08/19/16 Xl] tab.er.24h Ondansetron ODT [Zofran ODT] 4 mg SL Q6HR PRN #14 tab.rapdis 10/23/17 Promethazine [Phenergan] 25 mg PO Q8HR PRN #14 tablet 10/23/17 Allergies Allergy/AdvReac Type Severity Reaction Status Date / Time etodolac Allergy Swelling Verified 09/17/17 11:11 of Lip/Tongue/Throat Penicillins Allergy See Verified 09/17/17 11:11 Comments sulfamethoxazole Allergy See Verified 09/17/17 11:11 [From Bactrim] Comments Tetracycline Allergy See Verified 09/17/17 11:11 Comments trimethoprim [From Bactrim] Allergy See Verified 09/17/17 11:11 Comments Amoxicillin AdvReac See Verified 09/17/17 17:26 Comments milk AdvReac See Verified 09/17/17 17:26 Comments tramadol AdvReac See Verified 09/17/17 17:26 Comments All systems ED: reviewed and negative except as stated. Constitutional: Denies: fever Gastrointestinal: Reports: abdominal pain, nausea, vomiting. Denies: diarrhea Genitourinary: Denies: dysuria, hematuria Abdominal Pain PMH - Past Medical History Medical history: Reports: cancer, CHF, COPD, diabetes, GERD, hepatitis, hypertension, myocardial infarction, other Male Surgical History: Reports: colostomy, other Psychiatric history: Reports: anxiety, depression, PTSD - Social History Smoking status: Current every day smoker Alcohol use: Reports: heavy Drug use: Reports: cocaine, opiates Physical Exam - General Limitations: no limitations General appearance: alert, anxious - Head Head exam: atraumatic - Eye Eye exam: Present: normal appearance - ENT ENT exam: normal exam - Neck Neck exam: Present: normal inspection - Chest Chest inspection: Present: normal inspection, symmetric chest wall rise - Respiratory Respiratory exam: Present: normal lung sounds bilaterally - Cardiovascular Cardiovascular exam: Present: regular rate, normal rhythm, normal heart sounds - Abdominal Exam Abdominal exam: Present: soft, tenderness (Moderate diffuse tenderness to palpation. Ostomy is pink with yellow/green output without surrounding erythema or induration.). Absent: distention, rigidity - Extremities Exam Extremities exam: Present: normal inspection, full ROM - Expanded Upper Extremity Exam Shoulder exam: Present: normal inspection, full ROM Arm exam: Present: normal inspection, full ROM Elbow exam: Present: normal inspection, full ROM Forearm/Wrist exam: Present: normal inspection, full ROM Hand exam: Present: normal inspection, full ROM - Expanded Lower Extremity Exam Hip/Pelvis exam: Present: normal inspection, full ROM Upper leg exam: Present: normal inspection, full ROM Knee exam: Present: normal inspection, full ROM Lower leg exam: Present: normal inspection, full ROM Ankle exam: Present: normal inspection, full ROM Foot/toe exam: Present: normal inspection, full ROM - Psychiatric Psychiatric exam: Present: anxious - Skin Skin exam: Present: warm, dry, intact Course Course Narrative: Seen and examined. Vital signs reviewed. We will get a CT scan of the abdomen and pelvis as well as labs and urinalysis. Patient given IV fluids, Zofran and Dilaudid. - Reevaluation(s) Reevaluation #1: Patient feeling better after medications. Discussed results of CT and labs with the patient. They are agreeable with being discharged. Reevaluation #2: The [facility] called reporting that the patient had called them and said that he was suicidal. We went back into the room and the patient is agitated saying these having thoughts of killing himself and that he [place]. He reports he just wants to get to the [place]. We discussed with him that he will require additional testing here then discussion [facility] the [facility]. Vital Signs Temperature 98.2 F 10/23/17 10:26 Pulse Rate 94 10/23/17 10:26 Respiratory Rate 19 10/23/17 10:26 Blood Pressure 132/93 10/23/17 10:26 O2 Sat by Pulse Oximetry 95 10/23/17 10:26 Temperature 98.2 F 10/23/17 10:26 Pulse Rate 72 10/23/17 16:54 Respiratory Rate 17 10/23/17 16:54 Blood Pressure 129/80 10/23/17 16:54 O2 Sat by Pulse Oximetry 97 10/23/17 16:54 Oxygen Delivery Oxygen Delivery Room Air Abdominal Pain - MDM Narrative Medical decision making narrative: 62-year-old male presents to the ER via EMS due to abdominal pain nausea vomiting and diarrhea. Prior history of colonic resection and colostomy secondary to prostate cancer. CT scan demonstrates no acute findings. Labs reviewed with no acute derangements. Patient's symptoms are control after medications here. He will be discharged home with close follow-up with his primary care provider. 15:58 [facility] as [facility] them voicing suicidal ideation. We are medically clearing him here. He is pink slipped. We will discuss with the [facility] for [facility] for inpatient management. Spoke with the [place] [facility]. They are comfortable accepting the patient at this time without medical evaluation. They do not currently have any medical beds. Discussed with the hospitalist for admission here until bed opens at the [facility]. - Lab Data Lab results reviewed: Yes I reviewed the patient's lab results. Result diagrams: 10/23/17 10:59 10/23/17 10:59 Lab Results 10/23/17 10/23/17 10/23/17 Range/Units 10:59 10:59 10:59 WBC 5.6 (4.3-11.1) K/mcL RBC 5.87 H (4.19-5.50) M/mcL Hgb 18.4 H (12.9-16.9) g/dL Hct 54.2 H (37.5-50.1) % MCV 92.3 (83.0-100.0) fL MCH 31.3 (28.0-33.3) pg MCHC 33.9 (31.6-35.5) g/dL RDW 13.1 (11.5-14.5) % Plt Count 352 (140-400) K/mcL MPV 9.1 L (9.4-12.4) fL Immature Gran % 0.5 (0-4) % Seg Neutrophils % 41.4 % Lymphocytes % 40.1 % Monocytes % 11.1 % Eosinophils % 6.2 % Basophils % 0.7 % Neutrophils # 2.3 (1.6-8.9) K/mcL Lymphocytes # 2.3 (0.6-4.6) K/mcL Monocytes # 0.6 (0.0-1.3) K/mcL Eosinophils # 0.4 (0.0-0.6) K/mcL Basophils # 0.0 (0.0-0.2) K/mcL Sodium 128 L (136-145) mEq/L Potassium 3.7 (3.5-5.1) mEq/L Chloride 102 (98-107) mEq/L Carbon Dioxide 20 L (23-29) mEq/L BUN 26 H (8-23) mg/dL Creatinine 1.52 H (0.70-1.30) mg/dL Est GFR ( Amer) 56 L (> 60) Est GFR (Non-Af Amer) 47 L (> 60) BUN/Creatinine Ratio 17 (6-26) Glucose 62 L (70-105) mg/dL Calculated Osmolality 269 L (280-300) Lactic Acid 1.2 (0.5-2.2) mmol/L Calcium 10.9 H (8.6-10.3) mg/dL Total Bilirubin 0.6 (0.3-1.0) mg/dL Direct Bilirubin 0.1 (0.0-0.2) mg/dL Indirect Bilirubin 0.5 (0.0-1.2) mg/dL AST 31 (13-39) Units/L ALT 34 (7-52) Units/L Alkaline Phosphatase 124 H (34-104) Units/L Troponin I (< 0.04) ng/mL Serum Total Protein 9.6 H (6.4-8.9) g/dL Albumin 5.3 (3.5-5.7) g/dL Globulin 4.3 H (2.4-3.5) g/dL Albumin/Globulin Ratio 1.2 (1.1-2.2) Lipase 53 (11-82) Units/L Urine Color (Yellow) Urine Clarity (Clear) Urine pH (5.0-8.0) pH Units Ur Specific [place] (1.010-1.025) Urine Protein (Neg-Trace) mg/dL Urine Glucose (UA) (Normal) mg/dL Urine Ketones (Negative) mg/dL Urine Blood (Negative) Urine Nitrite (Negative) Urine Bilirubin (Negative) Urine Urobilinogen (Normal) mg/dL Ur Leukocyte Esterase (Negative) Urine Microscopic RBC (0-3) per hpf Urine Microscopic WBC (0-3) per hpf Ur Squamous Epith Cells (None-Few) per lpf Urine Bacteria (None-Few) per hpf Hyaline Casts (None-Few) per lpf Ur Culture Indicated? (NO) Salicylates < 5.0 L (15.0-30.0) mg/dL Urine Opiates Screen (Hxtgin=488) ng/mL Acetaminophen < 1.0 L (10-30) mcg/mL Ur Barbiturates Screen (Bslnlc=139) ng/mL Ur Phencyclidine Scrn (Cutoff=25) ng/mL Ur Amphetamines Screen (Xmuqmv=3243) ng/mL U Benzodiazepines Scrn (Aibdln=286) ng/mL Urine Cocaine Screen (Cutoff= 300) ng/mL U Marijuana (THC) Screen (Cutoff = 50) ng/mL Ethyl Alcohol < 10 (0-10) mg/dL 10/23/17 10/23/17 10/23/17 Range/Units 10:59 12:12 12:12 WBC (4.3-11.1) K/mcL RBC (4.19-5.50) M/mcL Hgb (12.9-16.9) g/dL Hct (37.5-50.1) % MCV (83.0-100.0) fL MCH (28.0-33.3) pg MCHC (31.6-35.5) g/dL RDW (11.5-14.5) % Plt Count (140-400) K/mcL MPV (9.4-12.4) fL Immature Gran % (0-4) % Seg Neutrophils % % Lymphocytes % % Monocytes % % Eosinophils % % Basophils % % Neutrophils # (1.6-8.9) K/mcL Lymphocytes # (0.6-4.6) K/mcL Monocytes # (0.0-1.3) K/mcL Eosinophils # (0.0-0.6) K/mcL Basophils # (0.0-0.2) K/mcL Sodium (136-145) mEq/L Potassium (3.5-5.1) mEq/L Chloride (98-107) mEq/L Carbon Dioxide (23-29) mEq/L BUN (8-23) mg/dL Creatinine (0.70-1.30) mg/dL Est GFR ( Amer) (> 60) Est GFR (Non-Af Amer) (> 60) BUN/Creatinine Ratio (6-26) Glucose (70-105) mg/dL Calculated Osmolality (280-300) Lactic Acid (0.5-2.2) mmol/L Calcium (8.6-10.3) mg/dL Total Bilirubin (0.3-1.0) mg/dL Direct Bilirubin (0.0-0.2) mg/dL Indirect Bilirubin (0.0-1.2) mg/dL AST (13-39) Units/L ALT (7-52) Units/L Alkaline Phosphatase (34-104) Units/L Troponin I 0.04 H* (< 0.04) ng/mL Serum Total Protein (6.4-8.9) g/dL Albumin (3.5-5.7) g/dL Globulin (2.4-3.5) g/dL Albumin/Globulin Ratio (1.1-2.2) Lipase (11-82) Units/L Urine Color Yellow (Yellow) Urine Clarity Clear (Clear) Urine pH 6.0 (5.0-8.0) pH Units Ur Specific [place] 1.021 (1.010-1.025) Urine Protein 100 H (Neg-Trace) mg/dL Urine Glucose (UA) Normal (Normal) mg/dL Urine Ketones Negative (Negative) mg/dL Urine Blood Small H (Negative) Urine Nitrite Negative (Negative) Urine Bilirubin Negative (Negative) Urine Urobilinogen Normal (Normal) mg/dL Ur Leukocyte Esterase Negative (Negative) Urine Microscopic RBC 0-3 (0-3) per hpf Urine Microscopic WBC 0-3 (0-3) per hpf Ur Squamous Epith Cells Many H (None-Few) per lpf Urine Bacteria None Seen (None-Few) per hpf Hyaline Casts None Seen (None-Few) per lpf Ur Culture Indicated? NO (NO) Salicylates (15.0-30.0) mg/dL Urine Opiates Screen Positive H (Xlqxkk=234) ng/mL Acetaminophen (10-30) mcg/mL Ur Barbiturates Screen Negative (Oemwxx=137) ng/mL Ur Phencyclidine Scrn Negative (Cutoff=25) ng/mL Ur Amphetamines Screen Negative (Zjzdpk=8978) ng/mL U Benzodiazepines Scrn Negative (Nyocbf=965) ng/mL Urine Cocaine Screen Positive H (Cutoff= 300) ng/mL U Marijuana (THC) Screen Negative (Cutoff = 50) ng/mL Ethyl Alcohol (0-10) mg/dL 10/23/17 Range/Units 16:52 WBC (4.3-11.1) K/mcL RBC (4.19-5.50) M/mcL Hgb (12.9-16.9) g/dL Hct (37.5-50.1) % MCV (83.0-100.0) fL MCH (28.0-33.3) pg MCHC (31.6-35.5) g/dL RDW (11.5-14.5) % Plt Count (140-400) K/mcL MPV (9.4-12.4) fL Immature Gran % (0-4) % Seg Neutrophils % % Lymphocytes % % Monocytes % % Eosinophils % % Basophils % % Neutrophils # (1.6-8.9) K/mcL Lymphocytes # (0.6-4.6) K/mcL Monocytes # (0.0-1.3) K/mcL Eosinophils # (0.0-0.6) K/mcL Basophils # (0.0-0.2) K/mcL Sodium (136-145) mEq/L Potassium (3.5-5.1) mEq/L Chloride (98-107) mEq/L Carbon Dioxide (23-29) mEq/L BUN (8-23) mg/dL Creatinine (0.70-1.30) mg/dL Est GFR ( Amer) (> 60) Est GFR (Non-Af Amer) (> 60) BUN/Creatinine Ratio (6-26) Glucose (70-105) mg/dL Calculated Osmolality (280-300) Lactic Acid (0.5-2.2) mmol/L Calcium (8.6-10.3) mg/dL Total Bilirubin (0.3-1.0) mg/dL Direct Bilirubin (0.0-0.2) mg/dL Indirect Bilirubin (0.0-1.2) mg/dL AST (13-39) Units/L ALT (7-52) Units/L Alkaline Phosphatase (34-104) Units/L Troponin I 0.03 (< 0.04) ng/mL Serum Total Protein (6.4-8.9) g/dL Albumin (3.5-5.7) g/dL Globulin (2.4-3.5) g/dL Albumin/Globulin Ratio (1.1-2.2) Lipase (11-82) Units/L Urine Color (Yellow) Urine Clarity (Clear) Urine pH (5.0-8.0) pH Units Ur Specific [place] (1.010-1.025) Urine Protein (Neg-Trace) mg/dL Urine Glucose (UA) (Normal) mg/dL Urine Ketones (Negative) mg/dL Urine Blood (Negative) Urine Nitrite (Negative) Urine Bilirubin (Negative) Urine Urobilinogen (Normal) mg/dL Ur Leukocyte Esterase (Negative) Urine Microscopic RBC (0-3) per hpf Urine Microscopic WBC (0-3) per hpf Ur Squamous Epith Cells (None-Few) per lpf Urine Bacteria (None-Few) per hpf Hyaline Casts (None-Few) per lpf Ur Culture Indicated? (NO) Salicylates (15.0-30.0) mg/dL Urine Opiates Screen (Gzuhyv=831) ng/mL Acetaminophen (10-30) mcg/mL Ur Barbiturates Screen (Yyovov=441) ng/mL Ur Phencyclidine Scrn (Cutoff=25) ng/mL Ur Amphetamines Screen (Hhlixr=7720) ng/mL U Benzodiazepines Scrn (Rhltmc=818) ng/mL Urine Cocaine Screen (Cutoff= 300) ng/mL U Marijuana (THC) Screen (Cutoff = 50) ng/mL Ethyl Alcohol (0-10) mg/dL - Radiology Data Radiology results reviewed: Yes I reviewed the patient's radiology results. Abdomen/Pelvis CT 10/23/17 10:29 IMPRESSION: No acute intra-abdominal abnormality. D/ / Shahzad Shipman MD / Shahzad Shipman MD Interpreting Provider: Shahzad Shipman MD - EKG Data EKG attestation: Yes I reviewed and interpreted this EKG. EKG results narrative: EKG demonstrates sinus rhythm with rate of 92 bpm. Normal axis. Normal intervals. Normal R-wave progression. Nonspecific ST-T wave changes in leads V5 and V6. No gross ST elevations or depressions. No acute ischemic findings.
--- NOTE | 2017-10-23 10:46 | Emergency Department Note ---
START Narrative - START START: I examined this patient and my medical decision-making was reviewed with the Resident Physician. I agree with the documented findings, disposition and treatment plan as described except to the extent set forth below. 62-year-old male presents emergency room for abdominal pain associated with nausea vomiting and diarrhea. We will obtain some general markers and potential CT scan. Fluids and antiemetics and pain medication. Patient is actively vomiting in the emergency room. He denies any fevers. Denies any blood in his stool or vomit. Denies any sick contacts at this time.
[2017-10-23 11:17] LABS: Basophils % 0.7 %; Eosinophils # 0.4 K/mcL (0.0-0.6); Eosinophils % 6.2 %; Hematocrit 54.2 % (37.5-50.1); Hemoglobin 18.4 g/dL (12.9-16.9); Immature Granulocytes % 0.5 % (0-4); Lymphocytes # 2.3 K/mcL (0.6-4.6); Lymphocytes % 40.1 %; Mean Corpuscular HGB Conc 33.9 g/dL (31.6-35.5); Mean Corpuscular Hemoglobin 31.3 pg (28.0-33.3); Mean Corpuscular Volume 92.3 fL (83.0-100.0); Mean Platelet Volume 9.1 fL (9.4-12.4); Monocytes # 0.6 K/mcL (0.0-1.3); Monocytes % 11.1 %; Neutrophils # 2.3 K/mcL (1.6-8.9); Platelet Count 352 K/mcL (140-400); Red Blood Count 5.87 M/mcL (4.19-5.50); Red Cell Distribution Width 13.1 % (11.5-14.5); Segmented Neutrophils % 41.4 %
[2017-10-23] MEDS ORDERED: *HR* OxyCODONE/APAP 5/325 TABLET PO ONE (11:23)
[2017-10-23 11:33] LABS: Alanine Aminotransferase 34 Units/L (7-52); Albumin 5.3 g/dL (3.5-5.7); Albumin/Globulin Ratio 1.2 (1.1-2.2); Alkaline Phosphatase 124 Units/L (34-104); Aspartate Amino Transferase 31 Units/L (13-39); BUN/Creatinine Ratio 17 (6-26); Bilirubin,Direct 0.1 mg/dL (0.0-0.2); Bilirubin,Indirect 0.5 mg/dL (0.0-1.2); Bilirubin,Total 0.6 mg/dL (0.3-1.0); Blood Urea Nitrogen 26 mg/dL (8-23); Calcium 10.9 mg/dL (8.6-10.3); Carbon Dioxide 20 mEq/L (23-29); Chloride 102 mEq/L (98-107); Globulin 4.3 g/dL (2.4-3.5); Glucose 62 mg/dL (70-105); Lipase 53 Units/L (11-82); Osmolality,Calculated 269 (280-300); Potassium 3.7 mEq/L (3.5-5.1); Sodium 128 mEq/L (136-145); Total Protein 9.6 g/dL (6.4-8.9); eGFR For African Americans 56 (> 60); eGFR For Non-African Americans 47 (> 60)
[2017-10-23 12:41] LABS: Bilirubin,Urine Negative (Negative); Blood,Urine Small (Negative); Clarity,Urine Clear (Clear); Color,Urine Yellow (Yellow); Glucose,Urine (UA) Normal (Normal); Ketones,Urine Negative (Negative); Leukocyte Esterase,Urine Negative (Negative); Nitrite,Urine Negative (Negative); Protein,Urine 100 mg/dL (Neg-Trace); Specific Gravity,Urine 1.021 (1.010-1.025); Urobilinogen,Urine Normal (Normal)
[2017-10-23 12:43] LABS: Bacteria,Urine None Seen per hpf (None-Few); Hyaline Casts,Urine None Seen per lpf (None-Few); RBC,Urine 0-3 per hpf (0-3); Squamous Epithelial Cell,Urine Many per lpf (None-Few); WBC,Urine 0-3 per hpf (0-3)
--- NOTE | 2017-10-23 13:53 | Electrocardiograph Report ---
[facility] Test Date: 2017-10-23 Pat Name: Aristides Mccauley Department: 103 Room: Gender: M Recruitment And Outreach Assistant: JULIA : [id number] Requested By: Bentley Rasmussen Order Number: [id number] Reading MD: Adrien Copeland DO Measurements Intervals [place] Rate: 92 P: 80 MN: 167 QRS: 7 QRSD: 100 T: 113 QT: 340 QTc: 389 Interpretive Statements SINUS RHYTHM LEFT VENTRICULAR HYPERTROPHY AND ST-T CHANGE [VOLTAGE CRITERIA PLUS ST/T ABNORMALITY] POSSIBLE LATERAL MYOCARDIAL INFARCTION [30 ms Q WAVE IN I/aVL/V5/V6], OF INDETERMINATE AGE Electronically Signed On 10-23-2017 13:51:45 EST by Adrien Copeland DO
[2017-10-23 16:15] LABS: Acetaminophen < 1.0 mcg/mL (10-30); Ethanol < 10 mg/dL (0-10); Salicylate < 5.0 mg/dL (15.0-30.0)
[2017-10-23 16:38] LABS: Amphetamine Screen,Urine Negative ng/mL (Cutoff=1000); Barbiturate Screen,Urine Negative ng/mL (Cutoff=200); Benzodiazepines Screen,Urine Negative ng/mL (Cutoff=200); Cannabinoid Screen,Urine Negative ng/mL (Cutoff = 50); Cocaine Screen,Urine Positive ng/mL (Cutoff= 300); Opiate Screen,Urine Positive ng/mL (Cutoff=300); Phencyclidine Screen,Urine Negative ng/mL (Cutoff=25)
[2017-10-23] MEDS ORDERED: 0.9 % Sodium Chloride 1,000 ML IVC SCH ×2 (20:45→22:37)
[2017-10-23] MEDS ORDERED: Ondansetron 4 MG/2 ML VIAL IVP PRN (22:32)
[2017-10-23] MEDS ORDERED: *HR* HYDROmorphone (PF) 1 MG/ML SYRINGE IVP PRN (22:32)
[2017-10-23] MEDS ORDERED: Naloxone 0.4 MG/ML INJ IVP PRN (22:32)
[2017-10-23] MEDS ORDERED: *HR* HYDROcodone/Acet 5/325 mg TABLET PO PRN (22:32)
[2017-10-23] MEDS ORDERED: Acetaminophen 325 MG TABLET PO PRN (22:32)
[2017-10-23] MEDS ORDERED: Melatonin 3 MG TABLET PO PRN (22:38)
[2017-10-23] MEDS ORDERED: Artificial Tears SOLN 15 ML BOTTLE BOTH EYES PRN (22:38)
[2017-10-24 05:58] LABS: Basophils # 0.1 K/mcL (0.0-0.2); Basophils % 1.5 %; Eosinophils # 0.7 K/mcL (0.0-0.6); Eosinophils % 12.2 %; Hematocrit 49.1 % (37.5-50.1); Hemoglobin 16.9 g/dL (12.9-16.9); Immature Granulocytes % 0.2 % (0-4); Lymphocytes # 3.1 K/mcL (0.6-4.6); Lymphocytes % 56.1 %; Mean Corpuscular HGB Conc 34.4 g/dL (31.6-35.5); Mean Corpuscular Hemoglobin 31.6 pg (28.0-33.3); Mean Corpuscular Volume 91.8 fL (83.0-100.0); Mean Platelet Volume 9.3 fL (9.4-12.4); Monocytes # 0.5 K/mcL (0.0-1.3); Monocytes % 8.9 %; Neutrophils # 1.2 K/mcL (1.6-8.9); Platelet Count 289 K/mcL (140-400); Red Blood Count 5.35 M/mcL (4.19-5.50); Red Cell Distribution Width 13.3 % (11.5-14.5); Segmented Neutrophils % 21.1 %
[2017-10-24] MEDS ORDERED: *HR* Heparin 5,000 UNIT/ML VIAL SQ SCH (06:00)
--- NOTE | 2017-10-24 09:14 | Internal Med History&Physical ---
Date of Encounter: 10/23/17 Time of Encounter: 21:00 Assessment and Plan (1) Acute gastroenteritis Current visit: Yes Status: Acute Pt has N.V and diarrhea. CT abd unremarkable. consider acute gastroenteritis. - Place pt on clear liquid diet. - F/U BMP, correct electrolytes abnormality. (2) Tobacco abuse disorder Current visit: No Status: Chronic Smoking cessation education. Pt refuse nicotine patch. (3) CAD (coronary artery disease) Current visit: No Status: Acute No chest pain. EKG shows I/AVL/V5-V6 T wave inversion but this is no change with previous EKG. Cont home medication. Qualifiers: Coronary Disease-Associated Artery/Lesion type: ch[place] artery [place] vs. transplanted heart: chilkoot heart Associated angina: without angina Qualified Code(s): I25.10 - Atherosclerotic heart disease of chilkoot coronary artery without angina pectoris (4) DVT prophylaxis Current visit: No Status: Acute Heparin SC (5) Hyponatremia Current visit: Yes Status: Acute Mild hyponatremia, place pt on NS and closely follow up sodium level. (6) CATRACHITO (acute kidney injury) Current visit: No Status: Acute Probably due to dehydration caused by n/v. Cont IVF and follow up. (7) Nausea vomiting and diarrhea Current visit: Yes Status: Acute IVF and symptomatic treatment. (8) Suicidal ideation Current visit: Yes Status: Acute Pt will see [facility]. - 1:1 sitter - Suicidal precaution. (9) Positive urine drug screen Current visit: Yes Status: Acute Pt denies drug use but positive for cocaine and opioid in U tx screen. Internal Medicine - H&P: HPI Chief complaint: nausea, vomiting Admitted From: Home Plans for Post Hospital Care: Home History of present illness: Mr. Mccauley is a 62 year old male with hx of prostate ca s/p radiation, with colon injury during radiation leading to colostomy, CAD, CHF, DM present to ER for nausea, vomiting for 3 days. Pt also c/o abd pain. The vomiting is clear liquid, no blood. Pt denies fever, denies SOB or CP. Pt noticed diarrhea in his colostomy bag. In ER, pt expressed suicidal idea and said he is just tired. ER contacted [facility] and them will accept pt after pt medically stablized. Pt was admitted to medical floor. Past Med Surg Social Fam HX - Past Medical History Medical history: cancer, CHF, COPD, diabetes, GERD, hepatitis, hypertension, myocardial infarction, other Psychiatric history: anxiety, depression, PTSD - Past Surgical History Surgical History: colostomy - Social History Smoking Status: Current every day smoker Packs per day: 1/2 Smokeless Tobacco Status: No Alcohol use: rarely Drug use: cocaine Internal Medicine - H&P: Meds Melatonin 3 mg PO HS PRN 08/17/16 [History] Carboxymethylcellulose Sodium [Refresh Tears] 1 drop BOTH EYES BID PRN 06/12/17 [History] Sildenafil Citrate [Viagra] 100 mg PO DAILY PRN 06/12/17 [History] Adhesive Remover [Adhesive Remover Wipes] 1 each MC AD 09/17/17 [History] Aloe Vera/Collagen [Aloe [place] Cleansing Foam] 1 appl TP AD 09/17/17 [History] Dimethicone/Petrolatum,White [Sensi-Care Moisturizing 2 Crm] 1 appl TP AD [History] Ondansetron ODT [Zofran ODT] 4 mg SL Q6HR PRN #14 tab.rapdis 10/23/17 [Rx] Promethazine [Phenergan] 25 mg PO Q8HR PRN #14 tablet 10/23/17 [Rx] 3 Allergy/AdvReac Type Severity Reaction Status Date / Time etodolac Allergy Swelling Verified 09/17/17 11:11 of Lip/Tongue/Throat Penicillins Allergy See Verified 09/17/17 11:11 Comments sulfamethoxazole Allergy See Verified 09/17/17 11:11 [From Bactrim] Comments Tetracycline Allergy See Verified 09/17/17 11:11 Comments trimethoprim [From Bactrim] Allergy See Verified 09/17/17 11:11 Comments Amoxicillin AdvReac See Verified 09/17/17 17:26 Comments milk AdvReac See Verified 09/17/17 17:26 Comments tramadol AdvReac See Verified 09/17/17 17:26 Comments All Systems PM: A 10-system review of systems was performed and is negative for pertinent findings except as documented above in the HPI. - Constitutional Vitals: Temp Pulse Resp BP Pulse Ox 97.7 F 68 16 126/78 99 10/24/17 07:37 10/24/17 07:37 10/24/17 07:37 10/24/17 07:37 10/24/17 07:37 General appearance: Present: A&O X 3, no acute distress, answers questions appropriately - Head Head exam: Present: atraumatic, normocephalic - Eye Eye exam: Present: PERRL, conjuntiva pink, sclera anicteric Pupils: Present: PERRL - Neck Neck exam general surgery: Present: supple, trachea midline. Absent: lymphadenopathy - Respiratory Respiratory exam: Present: CTAB. Absent: accessory muscle use, rales, rhonchi, wheezes - Cardiovascular Cardiovascular exam: Present: RRR, +S1, +S2. Absent: diastolic murmur, gallop, rubs, systolic murmur - GI/Abdominal GI/Abdominal exam: Present: normal bowel sounds, soft, tenderness (Mild tenderness in 4Q w/o rebound or guarding.), no peritoneal signs. Absent: distended - Extremities Exam Extremities exam: Present: warm, radial pulses palpable and symmetrical. Absent : calf tenderness, cyanotic, pedal edema - Neurological Exam Neurological exam: Present: CN II-XII intact, oriented X3, no focal deficits. Absent: pronater drift, facial droop, speech deficit - Skin Skin exam: Present: dry, intact Internal Med - H&P Results - Labs CBC & Chem 7: 10/24/17 05:24 10/24/17 05:24 Labs: Short CBC 10/24/17 Range/Units 05:24 WBC 5.5 (4.3-11.1) K/mcL Hgb 16.9 D (12.9-16.9) g/dL Hct 49.1 (37.5-50.1) % Plt Count 289 (140-400) K/mcL Neutrophils # 1.2 L (1.6-8.9) K/mcL Cardiac Enzymes 10/23/17 10/24/17 Range/Units 22:47 05:24 Troponin I 0.03 0.03 (< 0.04) ng/mL - EKG Data -: EKG Interpreted by Myself EKG shows normal: sinus rhythm Rate: normal
[2017-10-24 09:15] LABS: BUN/Creatinine Ratio 23 (6-26); Blood Urea Nitrogen 21 mg/dL (8-23); Calcium 9.3 mg/dL (8.6-10.3); Carbon Dioxide 18 mEq/L (23-29); Chloride 108 mEq/L (98-107); Glucose 80 mg/dL (70-105); Osmolality,Calculated 276 (280-300); Potassium 3.9 mEq/L (3.5-5.1); Sodium 132 mEq/L (136-145); eGFR For African Americans > 60 (> 60); eGFR For Non-African Americans > 60 (> 60)
[2017-10-24 11:29] VITALS: BP 137/75
--- NOTE | 2017-10-24 13:26 | Discharge Summary ---
Date of Encounter: 10/24/17 Time of Encounter: 09:15 - Discharge Diagnosis (1) Nausea vomiting and diarrhea Priority: Primary Status: Acute (2) Acute gastroenteritis Priority: Secondary Status: Suspected (3) CATRACHITO (acute kidney injury) Priority: Secondary Status: Resolved (4) Cocaine abuse Priority: Secondary Status: Chronic (5) Hyponatremia Priority: Secondary Status: Acute (6) Suicidal ideation Priority: Secondary Status: Acute (7) Tobacco abuse disorder Priority: Secondary Status: Chronic - Discharge Medications Home Medications: Melatonin 3 mg PO HS PRN 08/17/16 [History] Carboxymethylcellulose Sodium [Refresh Tears] 1 drop BOTH EYES BID PRN 06/12/17 [History] Sildenafil Citrate [Viagra] 100 mg PO DAILY PRN 06/12/17 [History] Adhesive Remover [Adhesive Remover Wipes] 1 each MC AD 09/17/17 [History] Aloe Vera/Collagen [Aloe Hope Cleansing Foam] 1 appl TP AD 09/17/17 [History] Dimethicone/Petrolatum,White [Sensi-Care Moisturizing 2 Crm] 1 appl TP AD [History] Ondansetron ODT [Zofran ODT] 4 mg SL Q6HR PRN #14 tab.rapdis 10/23/17 [Rx] Promethazine [Phenergan] 25 mg PO Q8HR PRN #14 tablet 10/23/17 [Rx] Allergies/Adverse Reactions: 3 Allergy/AdvReac Type Severity Reaction Status Date / Time etodolac Allergy Swelling Verified 09/17/17 11:11 of Lip/Tongue/Throat Penicillins Allergy See Verified 09/17/17 11:11 Comments sulfamethoxazole Allergy See Verified 09/17/17 11:11 [From Bactrim] Comments Tetracycline Allergy See Verified 09/17/17 11:11 Comments trimethoprim [From Bactrim] Allergy See Verified 09/17/17 11:11 Comments Amoxicillin AdvReac See Verified 09/17/17 17:26 Comments milk AdvReac See Verified 09/17/17 17:26 Comments tramadol AdvReac See Verified 09/17/17 17:26 Comments Date of admission: 10/23/17 22:35 [facility] Consults: 10/24/17 00:26 Consult to Nutrition [CONS] Routine Comment: Consulting Provider: NUTRITION Reason for Dietary Consult: MST Score Consult to Manager Laboratory [CONS] Routine Reason for SW Consult: discharge planning for [facility] psych Discharging clinician: Cheryl Gutierrez Anticipated date of discharge: 10/24/17 - Patient Status Disposition: Transfer Psychiatric Hosp Condition: Good Functional capacity at discharge: independent ambulation Overall status at discharge: patient is progressing back to baseline - Discharge Instructions Instructions: Gastroenteritis (DC) Follow Up [facility]: [facility] [Primary Care Provider[facility] - () - Diet and Activity Activity: increase activity as tolerated Diet: diabetic diet, low fat, low cholesterol, low salt diet Hospital course: Mr. Mccauley is a 62 year old male patient with history of prostate cancer status post radiation and colostomy from complications, coronary artery disease , chronic tobacco abuse, substance abuse disorder presented to the ER with complaints of nausea and vomiting and diarrhea for the past 3 days. He was evaluated in the ER and was found to be dehydrated and hemoconcentrated along with acute kidney injury. CT scan of the abdomen and pelvis did not show any acute intra-abdominal abnormality He did express suicidal ideation and thoughts in the ER. He was observed here and given intravenous fluids with improvement in his metabolic profile and resolution of his acute kidney injury. He is now tolerating diet well. Patient's urine drug screen was positive for cocaine and benzodiazepines. His cocaine abuse may be contributing to his symptoms although he did not have any symptoms of ischemic bowel. I did discuss this with her and advised him to consider rehabilitation for this. Presently given his suicidal ideation, he was referred to [facility] for admission to their psychiatric unit. He has now been accepted there and will be transferred over. - Time Spent with Patient Total time spent providing and/or coordinating discharge services: Less than 30 minutes (25 min) - Constitutional Vitals: Temp Pulse Resp BP Pulse Ox 97.4 F L 65 16 137/75 96 10/24/17 11:27 10/24/17 11:27 10/24/17 11:27 10/24/17 11:27 10/24/17 11:27 General appearance: Present: A&O X 3, no acute distress, answers questions appropriately - Respiratory Respiratory exam: Present: CTAB. Absent: accessory muscle use, rales, rhonchi, wheezes - Cardiovascular Cardiovascular exam: Present: RRR, +S1, +S2. Absent: diastolic murmur, gallop, rubs, systolic murmur - GI/Abdominal GI/Abdominal exam: Present: normal bowel sounds, soft, tenderness (Mild tenderness around colostomy site), no peritoneal signs. Absent: distended Additional comments: Colostomy in place - Extremities Exam Extremities exam: Present: warm, radial pulses palpable and symmetrical. Absent : calf tenderness, cyanotic, pedal edema - Psychiatric Psychiatric exam: Present: depressed, flat affect
== END 2017-10-24 14:37 | DRG 249 ==
LOC: 3BNU 10:25 → EMEROO 10:25 → 3BNU 22:34 → SUATTDRO 22:35 → 3BNU 22:46
PROVIDERS: ADMIT Internal Medicine; ATTEND Internal Medicine

== ENCOUNTER 2017-11-12 10:51 | Observation (INO) ==
[2017-11-12] MEDS ORDERED: 0.9 % Sodium Chloride 1,000 ML IVC ONE (11:00)
[2017-11-12] MEDS ORDERED: *HR* Promethazine 25 MG/ML VIAL IVP ONE (11:05)
--- NOTE | 2017-11-12 11:09 | Emergency Department Note ---
Disposition Clinical Impression: Peptic ulcer disease, Acute kidney injury, Hyponatremia Nausea and vomiting Qualifiers: Vomiting type: unspecified Vomiting Intractability: non-intractable Qualified Code(s): R11.2 - Nausea with vomiting, unspecified Abdominal pain Qualifiers: Abdominal location: generalized Qualified Code(s): R10.84 - Generalized abdominal pain Disposition: Admitted As Inpatient Condition: Fair Instructions: Acute Nausea and Vomiting (ED), Viral Syndrome (ED) [facility]errals: [facility] [Primary Care Provider] - Forms: ED Satisfaction Letter Time of Disposition: 13:20 General Adult HPI - General Chief complaint: ED Chest Pain Stated complaint: flu-like s/s, chest pain Time Seen by Provider: 11/12/17 10:58 Source: EMS Limitations: language barrier Nursing Notes Reviewed: Yes Vital Signs Reviewed: Yes - History of Present Illness HPI Narrative: Mr. Mccauley, a 62-year-old male, presents from home via EMS for evaluation of 10 /10 abdominal pain in 8/10 chest pain. Symptoms started 3 days ago with upper abdominal pain worse with cough and thoracic movement. He had associated nausea , subjective fever, cough, congestion at that time. This persisted and progressed to vomiting 10 (nonbloody, nonbilious). Patient notes his chest pain started last night described as sharp, stabbing, substernal, worse with cough. Patient is also had decreased by mouth intake; last meal that he did not vomit was approximately 3 days ago. PMH: History of prostate cancer which to sustain a partial colectomy resulting in a colostomy bag. Patient produces no stool from his rectum. History of COPD , congestive heart failure, DM, GERD, hepatitis, hypertension, prior CT. Habits: (+) cocaine use; last used 3 days ago. Denies SI and HI. Primary care via [facility] team at [facility] ROS: Positive: As above Negative: Palpitations, unusual dyspnea, diaphoresis, unusual back pain, hematuria, hematochezia, melena, loose stools, vertigo, headache, numbness, tingling Pain Scale: 10 - Related Data Home Medications Medication Instructions Recorded Confirmed Melatonin 3 mg PO HS PRN 08/17/16 10/23/17 Carboxymethylcellulose Sodium 1 drop BOTH EYES BID PRN 06/12/17 10/23/17 [Refresh Tears] Sildenafil Citrate [Viagra] 100 mg PO DAILY PRN 06/12/17 10/23/17 Adhesive Remover [Adhesive Remover 1 each MC AD 09/17/17 10/23/17 Wipes] Aloe Vera/Collagen [Aloe [place] 1 appl TP AD 09/17/17 10/23/17 Cleansing Foam] Dimethicone/Petrolatum,White 1 appl TP AD 09/17/17 10/23/17 [Sensi-Care Moisturizing 2 Crm] Previous Rx's Medication Instructions Recorded Ondansetron ODT [Zofran ODT] 4 mg SL Q6HR PRN #14 tab.rapdis 10/23/17 Promethazine [Phenergan] 25 mg PO Q8HR PRN #14 tablet 10/23/17 Allergies Allergy/AdvReac Type Severity Reaction Status Date / Time etodolac Allergy Swelling Verified 09/17/17 11:11 of Lip/Tongue/Throat Penicillins Allergy See Verified 09/17/17 11:11 Comments sulfamethoxazole Allergy See Verified 09/17/17 11:11 [From Bactrim] Comments Tetracycline Allergy See Verified 09/17/17 11:11 Comments trimethoprim [From Bactrim] Allergy See Verified 09/17/17 11:11 Comments Amoxicillin AdvReac See Verified 09/17/17 17:26 Comments milk AdvReac See Verified 09/17/17 17:26 Comments tramadol AdvReac See Verified 09/17/17 17:26 Comments All systems ED: reviewed and negative except as stated. Review of Systems: As Per HPI Past Medical History - Past Medical History Medical history: Reports: cancer, CHF, COPD, diabetes, GERD, hepatitis, hypertension, myocardial infarction, other Surgical history: Reports: colostomy Psychiatric history: Reports: anxiety, depression, PTSD - Social History Smoking Status: Current every day smoker Smokeless Tobacco Status: No Alcohol use: Reports: none Drug use: Reports: cocaine Physical Exam Vital Signs Reviewed General: Patient is alert, oriented, and in -cute distress-moaning on the cot, flinching with removal of the EMS EKG stickers, flinching with placement of stethoscope on his abdomen. HEENT: No facial asymmetry. Head is normocephalic and atraumatic. PERRLA, EOMI. Oral mucosa dry. Trachea midline. Cardiovascular: Heart regular rate and rhythm without clicks, rubs, gallops, or murmurs. No JVD. PMI nondisplaced. BL Radial and posterior tibial pulses 2/4 and equal. No pedal edema. Respiratory: Symmetric chest rise with poor respiratory effort. Prolonged expiratory phase. Bilateral breath sounds are clear without wheezing, crackles , or rhonchi. Abdomen: Bowel sounds present normoactive x-4 quadrants. Abdomen is soft, nondistended. Diffusely tender to palpation, no rebound. Guarding present. Unable to assess for organomegaly. Colostomy bag is empty. Musculoskeletal: Spontaneously moving all extremities. Neuro: Alert and oriented x4. Sensation light touch intact. Psych: Patient's affect is appropriate for situation. - General Limitations: language barrier General appearance: alert, in no apparent distress Course Course Narrative: Patient presents with multiple complaints. Will perform thorough workup assessing both his chest and abdominal pains as well as flu swab looking for possible pulmonary source. Patient's hemoglobin shows hemoconcentration consistent with his acute kidney injury and hypovolemic hyponatremia. Will provide IV fluids. Patient's nausea has improved with Zofran. Patient refuses by mouth challenge. Urinalysis is not concerning for UTI. CT abdomen and pelvis shows suspicion for peptic ulcer disease. Patient does have a history of GERD; he is on omeprazole at home. I discussed the above the patient. He agrees to admission for hypovolemic hyponatremia and acute kidney injury. Discussed the above with the admitting hospitalist. She agrees to admission for continued evaluation and management. Abdomen/Pelvis CT 11/12/17 11:01 IMPRESSION: 1. Nonspecific mild gastric and duodenal wall thickening which could relate to peptic ulcer disease. No evidence of obstruction, perforation, or abscess. 2. Postsurgical changes related to right lower quadrant loop ileostomy and prior partial colonic resection. 3. Stable mild hepatomegaly. 4. Prostatomegaly and evidence of bladder outlet obstruction. D/ / 11/12/2017 12:12:01 Keagan Ring MD / joyce Interpreting Provider: Keagan Ring MD Chest X-Ray 11/12/17 11:01 IMPRESSION: Stable portable study. D/ / Britt Medrano Cha, MD / Britt Medrano Cha, MD Interpreting Provider: Britt Medrano Cha, MD Vital Signs Temperature 97.6 F 11/12/17 10:53 Pulse Rate 95 11/12/17 10:53 Respiratory Rate 21 11/12/17 10:53 Blood Pressure 143/103 11/12/17 10:53 O2 Sat by Pulse Oximetry 97 11/12/17 10:53 Temperature 97.6 F 11/12/17 10:53 Pulse Rate 87 11/12/17 12:34 Respiratory Rate 12 11/12/17 12:34 Blood Pressure 152/92 11/12/17 12:34 O2 Sat by Pulse Oximetry 98 11/12/17 12:34 Oxygen Delivery Oxygen Delivery Room Air Medical Decision Making - Lab Data Result diagrams: 11/12/17 11:26 11/12/17 11:26 Lab Results 11/12/17 11/12/17 11/12/17 Range/Units 11:26 11:26 11:26 WBC 5.4 (4.3-11.1) K/mcL RBC 5.91 H (4.19-5.50) M/mcL Hgb 18.3 H (12.9-16.9) g/dL Hct 54.6 H (37.5-50.1) % MCV 92.4 (83.0-100.0) fL MCH 31.0 (28.0-33.3) pg MCHC 33.5 (31.6-35.5) g/dL RDW 12.9 (11.5-14.5) % Plt Count 334 (140-400) K/mcL MPV 9.2 L (9.4-12.4) fL Immature Gran % 0.2 (0-4) % Seg Neutrophils % 56.4 % Lymphocytes % 26.2 % Monocytes % 10.7 % Eosinophils % 5.8 % Basophils % 0.7 % Neutrophils # 3.0 (1.6-8.9) K/mcL Lymphocytes # 1.4 (0.6-4.6) K/mcL Monocytes # 0.6 (0.0-1.3) K/mcL Eosinophils # 0.3 (0.0-0.6) K/mcL Basophils # 0.0 (0.0-0.2) K/mcL Sodium 125 L (136-145) mEq/L Potassium 4.9 (3.5-5.1) mEq/L Chloride 103 (98-107) mEq/L Carbon Dioxide 14 L (23-29) mEq/L BUN 25 H (8-23) mg/dL Creatinine 1.52 H (0.70-1.30) mg/dL Est GFR ( Amer) 56 L (> 60) Est GFR (Non-Af Amer) 47 L (> 60) BUN/Creatinine Ratio 16 (6-26) Glucose 154 H (70-105) mg/dL Calculated Osmolality 267 L (280-300) Lactic Acid 1.4 (0.5-2.2) mmol/L Calcium 10.2 (8.6-10.3) mg/dL Total Bilirubin (0.3-1.0) mg/dL Direct Bilirubin (0.0-0.2) mg/dL Indirect Bilirubin (0.0-1.2) mg/dL AST (13-39) Units/L ALT (7-52) Units/L Alkaline Phosphatase (34-104) Units/L Troponin I (< 0.04) ng/mL Serum Total Protein (6.4-8.9) g/dL Albumin (3.5-5.7) g/dL Globulin (2.4-3.5) g/dL Albumin/Globulin Ratio (1.1-2.2) Lipase (11-82) Units/L Urine Color (Yellow) Urine Clarity (Clear) Urine pH (5.0-8.0) pH Units Ur Specific Dearing (1.010-1.025) Urine Protein (Neg-Trace) mg/dL Urine Glucose (UA) (Normal) mg/dL Urine Ketones (Negative) mg/dL Urine Blood (Negative) Urine Nitrite (Negative) Urine Bilirubin (Negative) Urine Urobilinogen (Normal) mg/dL Ur Leukocyte Esterase (Negative) Urine Microscopic RBC (0-3) per hpf Urine Microscopic WBC (0-3) per hpf Ur Squamous Epith Cells (None-Few) per lpf Urine Bacteria (None-Few) per hpf Hyaline Casts (None-Few) per lpf 11/12/17 11/12/17 11/12/17 Range/Units 11:26 11:26 12:19 WBC (4.3-11.1) K/mcL RBC (4.19-5.50) M/mcL Hgb (12.9-16.9) g/dL Hct (37.5-50.1) % MCV (83.0-100.0) fL MCH (28.0-33.3) pg MCHC (31.6-35.5) g/dL RDW (11.5-14.5) % Plt Count (140-400) K/mcL MPV (9.4-12.4) fL Immature Gran % (0-4) % Seg Neutrophils % % Lymphocytes % % Monocytes % % Eosinophils % % Basophils % % Neutrophils # (1.6-8.9) K/mcL Lymphocytes # (0.6-4.6) K/mcL Monocytes # (0.0-1.3) K/mcL Eosinophils # (0.0-0.6) K/mcL Basophils # (0.0-0.2) K/mcL Sodium (136-145) mEq/L Potassium (3.5-5.1) mEq/L Chloride (98-107) mEq/L Carbon Dioxide (23-29) mEq/L BUN (8-23) mg/dL Creatinine (0.70-1.30) mg/dL Est GFR ( Amer) (> 60) Est GFR (Non-Af Amer) (> 60) BUN/Creatinine Ratio (6-26) Glucose (70-105) mg/dL Calculated Osmolality (280-300) Lactic Acid (0.5-2.2) mmol/L Calcium (8.6-10.3) mg/dL Total Bilirubin 0.5 (0.3-1.0) mg/dL Direct Bilirubin 0.1 (0.0-0.2) mg/dL Indirect Bilirubin 0.4 (0.0-1.2) mg/dL AST 23 (13-39) Units/L ALT 19 (7-52) Units/L Alkaline Phosphatase 138 H (34-104) Units/L Troponin I 0.03 (< 0.04) ng/mL Serum Total Protein 9.3 H (6.4-8.9) g/dL Albumin 5.1 (3.5-5.7) g/dL Globulin 4.2 H (2.4-3.5) g/dL Albumin/Globulin Ratio 1.2 (1.1-2.2) Lipase 41 (11-82) Units/L Urine Color Yellow (Yellow) Urine Clarity Clear (Clear) Urine pH 6.0 (5.0-8.0) pH Units Ur Specific Dearing 1.021 (1.010-1.025) Urine Protein 30 H (Neg-Trace) mg/dL Urine Glucose (UA) Normal (Normal) mg/dL Urine Ketones Negative (Negative) mg/dL Urine Blood Negative (Negative) Urine Nitrite Negative (Negative) Urine Bilirubin Negative (Negative) Urine Urobilinogen Normal (Normal) mg/dL Ur Leukocyte Esterase Negative (Negative) Urine Microscopic RBC 0-3 (0-3) per hpf Urine Microscopic WBC 0-3 (0-3) per hpf Ur Squamous Epith Cells Many H (None-Few) per lpf Urine Bacteria None Seen (None-Few) per hpf Hyaline Casts Few (None-Few) per lpf - EKG Data EKG #1 EKG attestation: Yes I reviewed and interpreted this EKG. EKG results narrative: EKG dated 11/12/17 at 11:03 interpreted as sinus rhythm with rate of 99. Normal intervals. Left axis. LVH. Nonspecific ST-T changes. T-wave inversion in leads V5 and V6 present on comparative EKG. Compared to previous EKG dated 05/2018 showing no acute ischemic changes comparison.
[2017-11-12 11:33] LABS: Basophils % 0.7 %; Eosinophils # 0.3 K/mcL (0.0-0.6); Eosinophils % 5.8 %; Hematocrit 54.6 % (37.5-50.1); Hemoglobin 18.3 g/dL (12.9-16.9); Immature Granulocytes % 0.2 % (0-4); Lymphocytes # 1.4 K/mcL (0.6-4.6); Lymphocytes % 26.2 %; Mean Corpuscular HGB Conc 33.5 g/dL (31.6-35.5); Mean Corpuscular Volume 92.4 fL (83.0-100.0); Mean Platelet Volume 9.2 fL (9.4-12.4); Monocytes # 0.6 K/mcL (0.0-1.3); Monocytes % 10.7 %; Platelet Count 334 K/mcL (140-400); Red Blood Count 5.91 M/mcL (4.19-5.50); Red Cell Distribution Width 12.9 % (11.5-14.5); Segmented Neutrophils % 56.4 %
[2017-11-12 11:51] LABS: Calcium 10.2 mg/dL (8.6-10.3); Potassium 4.9 mEq/L (3.5-5.1)
[2017-11-12 11:52] LABS: Albumin 5.1 g/dL (3.5-5.7); Albumin/Globulin Ratio 1.2 (1.1-2.2); Bilirubin,Direct 0.1 mg/dL (0.0-0.2); Bilirubin,Indirect 0.4 mg/dL (0.0-1.2); Bilirubin,Total 0.5 mg/dL (0.3-1.0); Globulin 4.2 g/dL (2.4-3.5); Total Protein 9.3 g/dL (6.4-8.9)
[2017-11-12] MEDS ORDERED: *HR* Morphine 2 MG/ML SYRINGE IVP ONE (12:20)
[2017-11-12] MEDS ORDERED: 0.9 % Sodium Chloride 500 ML IVC ONE (12:20)
[2017-11-12] MEDS ORDERED: Famotidine 20 MG/2 ML VIAL IVP ONE (12:21)
--- NOTE | 2017-11-12 12:26 | Emergency Department Note ---
START Narrative - START START: I examined this patient and my medical decision-making was reviewed with the Resident Physician. I agree with the documented findings, disposition and treatment plan as described except to the extent set forth below. 62-year-old male presents emergency room for her chronic abdominal pain as well as some chest pain. Onset 3 days ago. Patient has been seen in the ER for the same complaint in the past. I have personally seen the patient for this very same complaint. He does appear to be slightly dehydrated on his lab work today. He is gotten 1 L of fluid and I have added [address] scan abdomen and pelvis shows questionable peptic ulcer disease. No other acute abnormality is seen. Chest x-ray was negative. EKG was unremarkable. Plan to hydrate and symptom control. Patient is doing better than I feel he can probably be discharged home. He would make sure that he is taking a proton pump inhibitor as well as an H2 kevin.
[2017-11-12 12:28] LABS: Bilirubin,Urine Negative (Negative); Blood,Urine Negative (Negative); Clarity,Urine Clear (Clear); Color,Urine Yellow (Yellow); Glucose,Urine (UA) Normal (Normal); Ketones,Urine Negative (Negative); Leukocyte Esterase,Urine Negative (Negative); Nitrite,Urine Negative (Negative); Protein,Urine 30 mg/dL (Neg-Trace); Specific Gravity,Urine 1.021 (1.010-1.025); Urobilinogen,Urine Normal (Normal)
[2017-11-12 12:32] LABS: Bacteria,Urine None Seen per hpf (None-Few); Hyaline Casts,Urine Few per lpf (None-Few); RBC,Urine 0-3 per hpf (0-3); Squamous Epithelial Cell,Urine Many per lpf (None-Few); WBC,Urine 0-3 per hpf (0-3)
[2017-11-12] MEDS ORDERED: Acetaminophen 325 MG TABLET PO PRN (14:03)
[2017-11-12] MEDS ORDERED: Naloxone 0.4 MG/ML INJ IVP PRN (14:03)
[2017-11-12] MEDS ORDERED: Ondansetron 4 MG/2 ML VIAL IVP PRN (14:04)
--- NOTE | 2017-11-12 15:08 | Internal Med History&Physical ---
Date of Encounter: 11/12/17 Time of Encounter: 15:07 Assessment and Plan (1) CATRACHITO (acute kidney injury) Current visit: Yes Status: Acute Patient presented with elevated creatinine, and poor oral intake as well as gastritis. He also subsisted history of CHF. He has received 1.5 L of intravenous hydration in the ER. Intravenous hydration for now. Avoid nephrotoxins. AKA may be post renal due to bladder outlet obstruction. Obtain blood ultrasound. Strict intake and output. (2) Gastritis Current visit: Yes Status: Acute Plan liquid diet only for now. Start patient on omeprazole. Qualifiers: Gastritis type: unspecified gastritis Chronicity: acute Gastritis bleeding: without bleeding Qualified Code(s): K29.00 - Acute gastritis without bleeding (3) Hyponatremia Current visit: Yes Status: Acute Baseline sodium is in the 150s. Patient presented today with a sodium of 125. He has received 1.5 L of saline in the ER. We will hold off any more correction of sodium for today. Monitor chemistry every 6 hours. (4) Peptic ulcer disease Current visit: Yes Status: Chronic By radiology. Continue PPI. Send H. pylori. (5) Cocaine abuse Current visit: Yes Status: Chronic Last use was 3 days ago. Encourage cessation. (6) Hypertension, essential Current visit: Yes Status: Chronic Uncontrolled on presentation to the ER. Controlled at this time. Continue home medications. (7) Moderate protein-calorie malnutrition Current visit: Yes Status: Chronic Nutrition evaluation. (8) Tobacco abuse disorder Current visit: Yes Status: Chronic Encouraged cessation. Internal Medicine - H&P: HPI Chief complaint: I have a stomach virus Admitted From: Home Plans for Post Hospital Care: Home History of present illness: Mr. Mccauley is a 62 year old male with history of prostate cancer with colostomy bag as a complication of dictation, chronic hyponatremia tobacco abuse and cocaine abuse. He presented with 2 days history of nausea and vomiting. Vomiting consisted of recently ingested nails. No hematemesis. He has no fever or chills has no melena stools. Has no chest pain and he has shortness of breath. His colostomy bag has been discharging brown feces no blood. He presented to the ER for workup and was found to have acute on chronic hyponatremia, acute kidney injury, abdomen CAT scan shows gastritis as well as evidence of peptic ulcer disease. His CAT scan also showed prostatomegaly with bladder outlet obstruction. The patient denies urinary symptoms. The patient is currently hemodynamically and clinically stable. We will admit to the inpatient for management of acute kidney injury, acute chronic hyponatremia. Past Med Surg Social Fam HX - Past Medical History Medical history: cancer, CHF, COPD, diabetes, GERD, hepatitis, hypertension, myocardial infarction, other Psychiatric history: anxiety, depression, PTSD - Past Surgical History Surgical History: colostomy - Social History Smoking Status: Current every day smoker Packs per day: 1/2 Smokeless Tobacco Status: No Alcohol use: none Drug use: cocaine - Family History Mother Adopted: [place]: Celina Mccauley Family Member Ethnicity: Non- Living Status: Age at : 45 Cause of : Cirrhosis Hx Family Cardiac Disorders: No Hx Family Respiratory Disorders: No Hx Family Cancer: No Hx Family GI Disorders: Yes (Cirrhosis) Hx Family Genitourinary Disorders: No Hx Family Endocrine Disorder: No Hx Family Musculoskeletal Disorders: No Hx Family Neuromuscular Disorders: No Hx Family Neurologic Disorders: No Hx Family HEENT Disorders: No Hx Family Autoimmune Disorders: No Hx Family Reproductive Disorders: No Hx Family Psychosocial Disorders: No Hx Family Medical Disorders: No Father Adopted: [place]: Alonzo Mccauley Age: 78 Family Member Ethnicity: Non- Living Status: Age at : 78 Cause of : old age Hx Family Cardiac Disorders: No Hx Family Respiratory Disorders: No Hx Family Cancer: No Hx Family GI Disorders: No Hx Family Genitourinary Disorders: No Hx Family Endocrine Disorder: Yes (DM) Hx Family Musculoskeletal Disorders: No Hx Family Neuromuscular Disorders: No Hx Family Neurologic Disorders: No Hx Family HEENT Disorders: No Hx Family Autoimmune Disorders: No Hx Family Reproductive Disorders: No Hx Family Psychosocial Disorders: No Hx Family Medical Disorders: No Internal Medicine - H&P: Meds Carboxymethylcellulose Sodium [Refresh Tears] 1 drop BOTH EYES BID PRN 06/12/17 [History] Adhesive Remover [Adhesive Remover Wipes] 1 each MC AD 09/17/17 [History] Aloe Vera/Collagen [Aloe [place] Cleansing Foam] 1 appl TP AD 09/17/17 [History] Dimethicone/Petrolatum,White [Sensi-Care Moisturizing 2 Crm] 1 appl TP AD [History] 3 Allergy/AdvReac Type Severity Reaction Status Date / Time etodolac Allergy Swelling Verified 09/17/17 11:11 of Lip/Tongue/Throat Penicillins Allergy See Verified 09/17/17 11:11 Comments sulfamethoxazole Allergy See Verified 09/17/17 11:11 [From Bactrim] Comments Tetracycline Allergy See Verified 09/17/17 11:11 Comments trimethoprim [From Bactrim] Allergy See Verified 09/17/17 11:11 Comments Amoxicillin AdvReac See Verified 09/17/17 17:26 Comments milk AdvReac See Verified 09/17/17 17:26 Comments tramadol AdvReac See Verified 09/17/17 17:26 Comments All Systems PM: A 10-system review of systems was performed and is negative for pertinent findings except as documented above in the HPI. - Constitutional Constitutional: no chills, no fever(s), no night sweats - EENT Eyes: no change in vision, no discharge, no pain, no photophobia Ears: no ear discharge, no ear pain, no tinnitus Nose, mouth and throat: no dysphagia, no nasal discharge, no neck pain, no sore throat - Cardiovascular Cardiovascular ROS IM: no chest pain, no diaphoresis, no dyspnea, no lightheadedness, no palpitations, no syncope - Respiratory Respiratory: no cough, no dyspnea, no wheezing, no excessive phlegm production - Gastrointestinal Gastrointestinal: as per HPI - Musculoskeletal Musculoskeletal ROS IM: no numbness, no tingling - Integumentary Integumentary IM: no rash, no unusual bruising - Neurological Neurological ROS: no confusion, no convulsions, no focal weakness, no numbness, no tingling, no tremor(s) - Hematologic/Lymphatic Hematologic/Lymphatic: no easy bruising - Constitutional Vitals: Temp Pulse Resp BP Pulse Ox 98.4 F 74 16 144/88 100 11/12/17 14:33 11/12/17 14:33 11/12/17 14:33 11/12/17 14:33 11/12/17 14:33 General appearance: Present: disheveled, mild distress, A&O X 3 - Head Head exam: Present: atraumatic, normocephalic - Eye Eye exam: Present: PERRL, conjuntiva pink, sclera anicteric Pupils: Present: PERRL - Neck Neck exam general surgery: Present: supple, trachea midline. Absent: lymphadenopathy - Respiratory Respiratory exam: Present: CTAB. Absent: accessory muscle use, rales, rhonchi, wheezes - Cardiovascular Cardiovascular exam: Present: RRR, +S1, +S2. Absent: diastolic murmur, gallop, rubs, systolic murmur - GI/Abdominal Additional comments: Abdomen is soft and nontender. No palpable enlarged organs. Colostomy bag in the right lower quadrant). - Extremities Exam Extremities exam: Present: warm, radial pulses palpable and symmetrical. Absent : calf tenderness, cyanotic, pedal edema - Neurological Exam Neurological exam: Present: alert, CN II-XII intact, oriented X3, no focal deficits. Absent: pronater drift, facial droop, speech deficit - Skin Skin exam: Present: dry, intact Internal Med - H&P Results - Labs CBC & Chem 7: 11/12/17 11:26 11/12/17 14:35
[2017-11-12 15:27] LABS: BUN/Creatinine Ratio 20 (6-26); Blood Urea Nitrogen 23 mg/dL (8-23); Carbon Dioxide 16 mEq/L (23-29); Chloride 109 mEq/L (98-107); Glucose 114 mg/dL (70-105); Osmolality,Calculated 275 (280-300); Potassium 4.8 mEq/L (3.5-5.1); Sodium 130 mEq/L (136-145); eGFR For African Americans > 60 (> 60); eGFR For Non-African Americans > 60 (> 60)
[2017-11-12] MEDS: *HR* HYDROcodone/Acet 5/325 mg TABLET PO PRN (20:44)
[2017-11-12] MEDS: 0.9 % Sodium Chloride 1,000 ML IVC SCH (21:57)
[2017-11-12 23:02] LABS: BUN/Creatinine Ratio 18 (6-26); Blood Urea Nitrogen 18 mg/dL (8-23); Calcium 8.8 mg/dL (8.6-10.3); Carbon Dioxide 18 mEq/L (23-29); Chloride 105 mEq/L (98-107); Glucose 76 mg/dL (70-105); Osmolality,Calculated 267 (280-300); Potassium 3.9 mEq/L (3.5-5.1); Sodium 128 mEq/L (136-145); eGFR For African Americans > 60 (> 60); eGFR For Non-African Americans > 60 (> 60)
[2017-11-13] MEDS: *HR* HYDROcodone/Acet 5/325 mg TABLET PO PRN ×2 (03:13→19:44)
[2017-11-13 04:44] LABS: Basophils # 0.1 K/mcL (0.0-0.2); Basophils % 1.5 %; Eosinophils # 0.5 K/mcL (0.0-0.6); Eosinophils % 8.6 %; Immature Granulocytes % 0.4 % (0-4); Lymphocytes # 2.9 K/mcL (0.6-4.6); Lymphocytes % 53.3 %; Mean Corpuscular HGB Conc 33.8 g/dL (31.6-35.5); Mean Corpuscular Hemoglobin 31.2 pg (28.0-33.3); Mean Corpuscular Volume 92.4 fL (83.0-100.0); Mean Platelet Volume 9.5 fL (9.4-12.4); Monocytes # 0.6 K/mcL (0.0-1.3); Monocytes % 10.8 %; Neutrophils # 1.4 K/mcL (1.6-8.9); Platelet Count 290 K/mcL (140-400); Red Blood Count 4.87 M/mcL (4.19-5.50); Red Cell Distribution Width 13.1 % (11.5-14.5); Segmented Neutrophils % 25.4 %
[2017-11-13 04:47] LABS: Hemoglobin 15.2 g/dL (12.9-16.9)
[2017-11-13] MEDS: 0.9 % Sodium Chloride 1,000 ML IVC SCH ×2 (07:56→16:47)
[2017-11-13] MEDS: Finasteride 5 MG TABLET PO SCH (08:57)
[2017-11-13 09:35] LABS: BUN/Creatinine Ratio 17 (6-26); Blood Urea Nitrogen 17 mg/dL (8-23); Calcium 9.2 mg/dL (8.6-10.3); Carbon Dioxide 20 mEq/L (23-29); Chloride 107 mEq/L (98-107); Glucose 87 mg/dL (70-105); Osmolality,Calculated 273 (280-300); Potassium 4.5 mEq/L (3.5-5.1); Sodium 131 mEq/L (136-145); eGFR For African Americans > 60 (> 60); eGFR For Non-African Americans > 60 (> 60)
--- NOTE | 2017-11-13 11:12 | Internal Med Progress Note ---
Date of Encounter: 11/13/17 Time of Encounter: 11:10 - Assessment and plan (1) Acute kidney injury Current Visit: Yes Status: Acute Assessment and plan: Patient presented with elevated creatinine and poor oral intake as well as gastritis. The patient presented to the emergency room with abdominal pain 10 out of 10 and chest pain 8 out of 10. He has reported this symptoms started 3 days before evaluation with abdominal pain worse with cough and movement. He stated he had nausea, subjective fever, cough and congestion. This symptoms persisted to restart to vomit and he reports 10 nonbloody nonbilious emesis. He describes his chest pain to the ER as sharp, stabbing, substernal and worse with cough and movement. He stated his last meal without vomiting was 3 days before admission. He had received 1.5 L of intravenous hydration in the ER. Intravenous hydration for now. Avoid nephrotoxins. CT of the abdomen and pelvis was obtained and revealed enlarged prostate and mild bladder distention with wall thickening and trabeculation consistent with outlet obstruction Strict intake and output. Patient denies any urinary symptoms CATRACHITO may be post renal due to bladder outlet obstruction. Check post void residual (2) Gastritis Current Visit: Yes Status: Acute Assessment and plan: CT abdomen and pelvis obtained which showed nonspecific mild gastric and duodenal wall thickening which could relate to peptic ulcer disease. evidence of obstruction, perforation, or abscess Patient has brown nonbloody stool coming through his colostomy Tolerated liquid diet, will advance to soft diet as patient is asking for more food Continue omeprazole. Qualifiers: Gastritis type: unspecified gastritis Chronicity: acute Gastritis bleeding: without bleeding Qualified Code(s): K29.00 - Acute gastritis without bleeding (3) Hyponatremia Current Visit: Yes Status: Acute Assessment and plan: Hyponatremia is slowly rising and is currently 131 (4) Moderate protein-calorie malnutrition Current Visit: Yes Status: Chronic Assessment and plan: Nutrition evaluation (5) Peptic ulcer disease Current Visit: Yes Status: Chronic (6) Tobacco abuse disorder Current Visit: Yes Status: Chronic Assessment and plan: Current smoker and cessation advised (7) Cocaine abuse Current Visit: Yes Status: Chronic Assessment and plan: Patient states last use was 3 days before admission. Encourage cessation (8) Hypertension, essential Current Visit: Yes Status: Chronic Assessment and plan: Blood pressure stable, continue home medications - Subjective Interval history: Patient tolerated his clear liquid diet this morning. His abdominal pain has improved. Denied chest pain, fever, chills, difficulty urinating, and states his colostomy is functioning. He really had no complaints for me this morning. Advance diet to soft and monitor tolerance. - Constitutional Vitals: Temp Pulse Resp BP Pulse Ox 97.6 F 67 17 100/56 98 11/13/17 07:10 11/13/17 07:10 11/13/17 07:10 11/13/17 07:10 11/13/17 07:10 General appearance: Present: disheveled, A&O X 3, no acute distress - Head Head exam: Present: atraumatic, normocephalic - Eye Eye exam: Present: conjuntiva pink, sclera anicteric - Neck Neck exam general surgery: Present: supple, trachea midline. Absent: lymphadenopathy - Respiratory Respiratory exam: Present: CTAB. Absent: accessory muscle use, chest wall tenderness, rales, rhonchi, wheezes - Cardiovascular Cardiovascular exam: Present: RRR, +S1, +S2. Absent: diastolic murmur, gallop, rubs, systolic murmur - GI/Abdominal GI/Abdominal exam: Present: normal bowel sounds, soft, no peritoneal signs. Absent: distended, guarding, tenderness - Extremities Exam Extremities exam: Present: warm, radial pulses palpable and symmetrical. Absent : calf tenderness, cyanotic, pedal edema - Neurological Exam Neurological exam: Present: oriented X3, no focal deficits. Absent: pronater drift, facial droop, speech deficit - Skin Skin exam: Present: dry, intact, warm Internal Medicine: Result - Labs CBC & Chem 7: 11/13/17 03:21 11/13/17 03:21 Labs: Short CBC 11/13/17 Range/Units 03:21 WBC 5.4 (4.3-11.1) K/mcL Hgb 15.2 D (12.9-16.9) g/dL Hct 45.0 (37.5-50.1) % Plt Count 290 (140-400) K/mcL Neutrophils # 1.4 L (1.6-8.9) K/mcL BMP 11/12/17 11/12/17 11/13/17 14:35 22:25 03:21 Sodium 130 L 128 L 131 L Potassium 4.8 3.9 4.5 Chloride 109 H 105 107 Carbon Dioxide 16 L 18 L 20 L BUN 23 18 17 Creatinine 1.14 1.02 1.00 Glucose 114 H 76 87 Calcium 9.0 8.8 9.2 Consult Discharge Plan - Plan [facility]errals: [facility] [Primary Care Provider[facility] -
[2017-11-14] MEDS: traZODone 50 MG TABLET PO PRN (03:00)
[2017-11-14] MEDS: 0.9 % Sodium Chloride 1,000 ML IVC SCH (03:58)
[2017-11-14] MEDS: Finasteride 5 MG TABLET PO SCH (08:34)
[2017-11-14] MEDS: *HR* HYDROcodone/Acet 5/325 mg TABLET PO PRN ×2 (08:35→20:08)
[2017-11-14 08:40] LABS: BUN/Creatinine Ratio 20 (6-26); Blood Urea Nitrogen 17 mg/dL (8-23); Calcium 9.1 mg/dL (8.6-10.3); Carbon Dioxide 21 mEq/L (23-29); Chloride 111 mEq/L (98-107); Glucose 87 mg/dL (70-105); Osmolality,Calculated 281 (280-300); Potassium 3.8 mEq/L (3.5-5.1); Sodium 135 mEq/L (136-145); eGFR For African Americans > 60 (> 60); eGFR For Non-African Americans > 60 (> 60)
--- NOTE | 2017-11-14 15:08 | Internal Med Progress Note ---
Date of Encounter: 11/14/17 Time of Encounter: 09:45 - Assessment and plan (1) CATRACHITO (acute kidney injury) Current Visit: Yes Status: Acute Assessment and plan: Labs have returned to within normal limits with IV fluid hydration. Continue to avoid nephrotoxins. Patient denies any urinary symptoms, CT of the abdomen and pelvis revealed enlarged prostate with mild bladder wall at distention and wall thickening and trabeculation consistent with outlet obstruction. Continue to check post void residual through remainder of today. (2) Gastritis Current Visit: Yes Status: Acute Assessment and plan: Pt presented with nausea and vomiting as well as typical stool through colostomy. Nausea and vomiting and dehydration could also be cause of CATRACHITO. Abdomen is soft and nontender, bowel sounds are faint. CT abdomen and pelvis showed nonspecific mild gastric and duodenal wall thickening which could relate to peptic ulcer disease there is no evidence of obstruction, perforation, or abscess. There were noted postsurgical changes and right lower quadrant loop ileostomy and prior partial colonic resection. There is stable, mild hepatomegaly and prostatic megaly and evidence of bladder outlet obstruction. Patient has advanced diet to regular and appears to be tolerating well. Qualifiers: Gastritis type: unspecified gastritis Chronicity: acute Gastritis bleeding: without bleeding Qualified Code(s): K29.00 - Acute gastritis without bleeding (3) Hyponatremia Current Visit: Yes Status: Resolved Assessment and plan: Sodium 135 today. Patient was receiving IV fluid hydration with 0.9 normal saline at 100 mL's per hour. Continue to monitor labs. (4) Nausea & vomiting Current Visit: Yes Status: Resolved Assessment and plan: Resolved. Pt has been eating and advanced diet to regular, appears to be tolerating well. Continue IVF hydration and antiemetics prn Monitor labs and vitals. Qualifiers: Vomiting type: unspecified Vomiting Intractability: non-intractable Qualified Code(s): R11.2 - Nausea with vomiting, unspecified (5) Cocaine abuse Current Visit: Yes Status: Chronic Assessment and plan: Per patient history. Patient states last use was 3 days before admission. Encourage cessation (6) Hypertension, essential Current Visit: Yes Status: Chronic Assessment and plan: Chronic. Well controlled. Continue home medications. (7) Moderate protein-calorie malnutrition Current Visit: Yes Status: Chronic Assessment and plan: Patient was evaluated by nutrition. He will continue a soft diet as tolerated as supplement with ensure shakes. (8) Tobacco abuse disorder Current Visit: Yes Status: Chronic Assessment and plan: Chronic. Continue to encourage smoking cessation. (9) DVT prophylaxis Current Visit: No Status: Acute Assessment and plan: Patient has been ambulatory in the room. Encourage early ambulation up ad adriana. - Time Spent With Patient less than 15 minutes - Subjective Interval history: Pt was seen and assessed at bedside at 0945. He is alert and awake, he denies pain and states that he is feeling better. He denies any abdominal pain, n/v/d, headache, chest pain, or shortness of breath. We have advanced his diet and he appears to be tolerating it well. - Constitutional Vitals: Temp Pulse Resp BP Pulse Ox 98.2 F 74 16 108/60 98 11/14/17 14:08 11/14/17 14:08 11/14/17 14:08 11/14/17 14:08 11/14/17 14:08 General appearance: Present: disheveled, A&O X 3, no acute distress - Head Head exam: Present: atraumatic, normal inspection, normocephalic - Eye Eye exam: Present: normal appearance, conjuntiva pink, sclera anicteric - Neck Neck exam general surgery: Present: normal inspection, supple, trachea midline. Absent: lymphadenopathy, tenderness - Respiratory Respiratory exam: Present: CTAB. Absent: accessory muscle use, rales, respiratory distress, rhonchi, wheezes - Cardiovascular Cardiovascular exam: Present: RRR, +S1, +S2. Absent: diastolic murmur, gallop, rubs, systolic murmur - GI/Abdominal GI/Abdominal exam: Present: normal bowel sounds, soft, no peritoneal signs. Absent: distended, hepatomegaly, tenderness - Extremities Exam Extremities exam: Present: normal capillary refill, normal inspection, warm, radial pulses palpable and symmetrical. Absent: calf tenderness, cyanotic, pedal edema, tenderness - Neurological Exam Neurological exam: Present: alert, oriented X3, no focal deficits. Absent: facial droop, speech deficit - Skin Skin exam: Present: dry, intact, normal color, warm. Absent: rash Internal Medicine: Result - Labs CBC & Chem 7: 11/13/17 03:21 11/14/17 07:50 Labs: BMP 11/14/17 07:50 Sodium 135 L Potassium 3.8 Chloride 111 H Carbon Dioxide 21 L BUN 17 Creatinine 0.85 Glucose 87 Calcium 9.1 Consult Discharge Plan - Plan Referrals: [facility],PCP [Primary Care Provider] - 11/21/17 12:30 pm
--- NOTE | 2017-11-14 17:25 | Electrocardiograph Report ---
[place] [id number] Test Date: 2017-11-12 Pat Name: Aristides Mccauley Department: 103 Room: 3B12 Gender: M Records Administrator: VL : [id number] Requested By: Sriram Hernandez Order Number: [id number] Reading MD: Pepe Rogers Measurements Intervals [place] Rate: 99 P: 81 [place]: 161 QRS: -31 QRSD: 92 T: 103 QT: 336 QTc: 392 Interpretive Statements SINUS RHYTHM MARKED LEFT AXIS DEVIATION LEFT VENTRICULAR HYPERTROPHY AND ST-T CHANGE Electronically Signed On 11-14-2017 17:23:37 EST by Pepe Rogers
[2017-11-15] MEDS: 0.9 % Sodium Chloride 1,000 ML IVC SCH ×3 (00:42→07:45)
[2017-11-15] MEDS: *HR* HYDROcodone/Acet 5/325 mg TABLET PO PRN (01:25)
[2017-11-15] MEDS: traZODone 50 MG TABLET PO PRN (01:26)
[2017-11-15] MEDS: Finasteride 5 MG TABLET PO SCH (07:45)
[2017-11-15 11:11] VITALS: BP 110/69
--- NOTE | 2017-11-15 14:43 | Discharge Summary ---
Date of Encounter: 11/15/17 Time of Encounter: 14:30 - Discharge Diagnosis (1) CATRACHITO (acute kidney injury) Priority: Primary Status: Acute Comments: Labs returned within normal limits, resolved with IV fluid hydration. Continue to avoid nephrotoxins at home. Patient denies any urinary symptoms, CT abdomen and pelvis revealed a large prostate with mild bladder wall distention and wall thickening, and trabeculation consistent with outlet obstruction. Follow-up with primary care. (2) Gastritis Priority: Secondary Status: Resolved Comments: Pt presented with nausea and vomiting as well as typical stool through colostomy. Nausea and vomiting and dehydration could also be cause of CATRACHITO. Abdomen is soft and nontender, bowel sounds present. CT abdomen and pelvis showed nonspecific mild gastric and duodenal wall thickening which could relate to peptic ulcer disease there is no evidence of obstruction, perforation, or abscess. There were noted postsurgical changes and right lower quadrant loop ileostomy and prior partial colonic resection. There is stable, mild hepatomegaly and prostatic megaly and evidence of bladder outlet obstruction. Patient has advanced diet to regular and is tolerating well without n/v/d. Qualifiers: Gastritis type: unspecified gastritis Chronicity: acute Gastritis bleeding: without bleeding Qualified Code(s): K29.00 - Acute gastritis without bleeding (3) Hyponatremia Priority: Secondary Status: Resolved Comments: Resolving, Patient was receiving IV fluid hydration with 0.9 normal saline at 100 mL's per hour. Follow up with PCP for continued monitoring. (4) Nausea & vomiting Priority: Secondary Status: Resolved Comments: Resolved. Pt has been eating and advanced diet to regular, is tolerating well. Labs are stable and WNL . Qualifiers: Vomiting type: unspecified Vomiting Intractability: non-intractable Qualified Code(s): R11.2 - Nausea with vomiting, unspecified (5) Cocaine abuse Priority: Secondary Status: Chronic Comments: Per patient history. Patient states last use was 3 days before admission. Encourage cessation (6) Hypertension, essential Priority: Secondary Status: Chronic Comments: Chronic. Continue home medications. (7) Moderate protein-calorie malnutrition Priority: Secondary Status: Chronic Comments: Patient reports that when he is home, he does not eat well. He was evaluated by nutrition, they have recommended supplementation with ensure shakes. Patient states he will continue these after discharge. (8) Tobacco abuse disorder Priority: Secondary Status: Chronic Comments: Chronic. Smoking cessation counseling completed. He states he is not ready to stop smoking and is declining any nicotine replacement therapy. (9) DVT prophylaxis Priority: Secondary Status: Acute Comments: The patient was ambulatory in the room. - Discharge Medications Home Medications: Carboxymethylcellulose Sodium [Refresh Tears] 1 drop BOTH EYES BID PRN 06/12/17 [History] Adhesive Remover [Adhesive Remover Wipes] 1 each MC AD 09/17/17 [History] Aloe Vera/Collagen [Aloe [place] Cleansing Foam] 1 appl TP AD 09/17/17 [History] Dimethicone/Petrolatum,White [Sensi-Care Moisturizing 2 Crm] 1 appl TP AD [History] Allergies/Adverse Reactions: 3 Allergy/AdvReac Type Severity Reaction Status Date / Time etodolac Allergy Swelling Verified 09/17/17 11:11 of Lip/Tongue/Throat Penicillins Allergy See Verified 09/17/17 11:11 Comments sulfamethoxazole Allergy See Verified 09/17/17 11:11 [From Bactrim] Comments Tetracycline Allergy See Verified 09/17/17 11:11 Comments trimethoprim [From Bactrim] Allergy See Verified 09/17/17 11:11 Comments Amoxicillin AdvReac See Verified 09/17/17 17:26 Comments milk AdvReac See Verified 09/17/17 17:26 Comments tramadol AdvReac See Verified 09/17/17 17:26 Comments Date of admission: 11/12/17 13:30 [facility] care physician[facility] Consults: 11/12/17 14:54 Consult to Nutrition [CONS] Routine Comment: Consulting Provider: NUTRITION Reason for Dietary Consult: Other Other:: wt. loss of 10+ pounds with in a week Discharging clinician: Jaz Mayberry Anticipated date of discharge: 11/15/17 - Patient Status Disposition: Home, Self-Care Condition: Good Functional capacity at discharge: independent ambulation Overall status at discharge: patient is back to baseline - Discharge Instructions Follow Up With: [facility] [Primary Care Provider[facility] - 11/21/17 12:30 pm Additional Instructions: Please follow up with your PCP in the next 7-10 days for a recheck. Return to the ER as needed for any other problems or concerns, or if your symptoms return or worsen. Take your medications as directed. REturn to your normal diet and activities as tolerated. - Diet and Activity Activity: increase activity as tolerated Diet: advance to your usual diet Hospital course: Mr. Mccauley is a 62 year old male - Time Spent with Patient Total time spent providing and/or coordinating discharge services: - Constitutional Vitals: Temp Pulse Resp BP Pulse Ox 97.8 F 67 16 110/69 97 11/15/17 11:11 11/15/17 11:11 11/15/17 11:11 11/15/17 11:11 11/15/17 11:11 General appearance: Present: cachectic, cooperative, disheveled, A&O X 3, no acute distress, answers questions appropriately - Head Head exam: Present: atraumatic, normal inspection, normocephalic - Eye Eye exam: Present: normal appearance, conjuntiva pink, sclera anicteric - Neck Neck exam general surgery: Present: supple, trachea midline. Absent: lymphadenopathy, tenderness - Respiratory Respiratory exam: Present: chest wall tenderness, CTAB. Absent: accessory muscle use, rales, respiratory distress, rhonchi, wheezes - Cardiovascular Cardiovascular exam: Present: RRR, +S1, +S2. Absent: diastolic murmur, gallop, rubs, systolic murmur - GI/Abdominal GI/Abdominal exam: Present: hepatomegaly, normal bowel sounds, soft, no peritoneal signs. Absent: distended, tenderness - Extremities Exam Extremities exam: Present: normal capillary refill, warm, radial pulses palpable and symmetrical. Absent: calf tenderness, cyanotic, pedal edema, tenderness - Neurological Exam Neurological exam: Present: alert, oriented X3, no focal deficits. Absent: facial droop, speech deficit - Skin Skin exam: Present: dry, intact, normal color, warm. Absent: rash
== END 2017-11-15 15:33 | disposition home or self-care (01) ==
LOC: EMEROO 10:51 → 3BNU 10:51
PROVIDERS: ADMIT Internal Medicine; ATTEND Registered Nurse

== ENCOUNTER 2019-09-20 20:02 | Inpatient (IN) ==
[2019-09-20 21:31] LABS: Basophils # 0.1 K/mcL (0.0-0.2); Eosinophils # 0.6 K/mcL (0.0-0.6); Eosinophils % 10.9 %; Hematocrit 41.6 % (37.5-50.1); Immature Granulocytes % 0.2 % (0-4); Lymphocytes # 2.7 K/mcL (0.6-4.6); Lymphocytes % 46.5 %; Mean Corpuscular HGB Conc 33.7 g/dL (31.6-35.5); Mean Corpuscular Hemoglobin 29.7 pg (28.0-33.3); Mean Corpuscular Volume 88.1 fL (83.0-100.0); Mean Platelet Volume 9.6 fL (9.4-12.4); Monocytes # 0.6 K/mcL (0.0-1.3); Monocytes % 10.2 %; Neutrophils # 1.8 K/mcL (1.6-8.9); Platelet Count 328 K/mcL (140-400); Red Blood Count 4.72 M/mcL (4.19-5.50); Red Cell Distribution Width 15.5 % (11.5-14.5); Segmented Neutrophils % 31.2 %; White Blood Count 5.9 K/mcL (4.3-11.1)
[2019-09-20 21:43] LABS: Alanine Aminotransferase 14 Units/L (7-52); Albumin/Globulin Ratio 1.2 (1.1-2.2); Alkaline Phosphatase 92 Units/L (34-104); Aspartate Amino Transferase 20 Units/L (13-39); BUN/Creatinine Ratio 19 (6-26); Bilirubin,Total 0.3 mg/dL (0.3-1.0); Blood Urea Nitrogen 17 mg/dL (8-23); Calcium 9.4 mg/dL (8.6-10.3); Carbon Dioxide 21 mEq/L (23-29); Chloride 108 mEq/L (98-107); Globulin 3.3 g/dL (2.4-3.5); Glucose 116 mg/dL (70-105); Osmolality,Calculated 287 (280-300); Potassium 3.8 mEq/L (3.5-5.1); Sodium 137 mEq/L (136-145); Total Protein 7.3 g/dL (6.4-8.9); eGFR For African Americans > 60 (> 60); eGFR For Non-African Americans > 60 (> 60)
[2019-09-20 21:49] LABS: Troponin I 0.09 ng/mL (< 0.04)
[2019-09-20 23:09] LABS: Prothrombin Time 11.8 Seconds (9.4-12.1)
[2019-09-20] MEDS ORDERED: *HR* Heparin 5,000 UNIT/ML VIAL IVP ONE (23:23)
[2019-09-20] MEDS ORDERED: Nitroglycerin 0.4 MG TAB.SUBL SL PRN (23:51)
[2019-09-21] MEDS: Heparin 25,000 UNIT/250 ML D5W 25,000 UNIT/250 ML IV.SOLN IVC SCH (00:30)
[2019-09-21 05:43] LABS: Basophils # 0.1 K/mcL (0.0-0.2); Eosinophils # 0.8 K/mcL (0.0-0.6); Eosinophils % 12.4 %; Hematocrit 41.2 % (37.5-50.1); Hemoglobin 13.1 g/dL (12.9-16.9); Immature Granulocytes % 0.3 % (0-4); Lymphocytes # 3.8 K/mcL (0.6-4.6); Lymphocytes % 56.6 %; Mean Corpuscular HGB Conc 31.8 g/dL (31.6-35.5); Mean Corpuscular Hemoglobin 29.3 pg (28.0-33.3); Mean Corpuscular Volume 92.2 fL (83.0-100.0); Mean Platelet Volume 9.6 fL (9.4-12.4); Monocytes # 0.7 K/mcL (0.0-1.3); Monocytes % 9.7 %; Neutrophils # 1.3 K/mcL (1.6-8.9); Platelet Count 290 K/mcL (140-400); Red Blood Count 4.47 M/mcL (4.19-5.50); Red Cell Distribution Width 15.4 % (11.5-14.5); White Blood Count 6.7 K/mcL (4.3-11.1)
[2019-09-21 06:00] LABS: BUN/Creatinine Ratio 19 (6-26); Blood Urea Nitrogen 20 mg/dL (8-23); Calcium 8.8 mg/dL (8.6-10.3); Carbon Dioxide 25 mEq/L (23-29); Chloride 105 mEq/L (98-107); Chol/HDL Ratio 3.9 (0-4.9); Cholesterol 173 mg/dL (< 200); Glucose 95 mg/dL (70-105); HDL Cholesterol 44 mg/dL (40-59); LDL Cholesterol,Calculated 114 mg/dL (0-99); Osmolality,Calculated 286 (280-300); Sodium 137 mEq/L (136-145); Triglycerides 73 mg/dL (< 150); eGFR For African Americans > 60 (> 60); eGFR For Non-African Americans > 60 (> 60)
[2019-09-21 06:12] LABS: Thyroid Stimulating Hormone 0.478 mcIU/mL (0.340-5.600)
[2019-09-21 08:50] LABS: Estimated Average Glucose 146 mg/dl
[2019-09-21] MEDS: Aspirin Enteric Coated 81 MG Tablet PO SCH (10:04)
[2019-09-21] MEDS: Furosemide 20 MG TABLET PO SCH (10:04)
[2019-09-21 13:15] LABS: Amphetamine Screen,Urine Negative ng/mL (Cutoff=1000); Barbiturate Screen,Urine Negative ng/mL (Cutoff=200); Benzodiazepines Screen,Urine Negative ng/mL (Cutoff=200); Cannabinoid Screen,Urine Negative ng/mL (Cutoff = 50); Cocaine Screen,Urine Positive ng/mL (Cutoff= 300); Opiate Screen,Urine Negative ng/mL (Cutoff=300); Phencyclidine Screen,Urine Negative ng/mL (Cutoff=25)
[2019-09-22] MEDS: Heparin 25,000 UNIT/250 ML D5W 25,000 UNIT/250 ML IV.SOLN IVC SCH ×2 (02:52→23:24)
[2019-09-22 03:10] LABS: Basophils # 0.1 K/mcL (0.0-0.2); Basophils % 1.1 %; Eosinophils # 0.7 K/mcL (0.0-0.6); Eosinophils % 10.9 %; Hematocrit 38.9 % (37.5-50.1); Hemoglobin 12.8 g/dL (12.9-16.9); Immature Granulocytes % 0.2 % (0-4); Lymphocytes # 2.8 K/mcL (0.6-4.6); Lymphocytes % 44.1 %; Mean Corpuscular HGB Conc 32.9 g/dL (31.6-35.5); Mean Corpuscular Hemoglobin 29.4 pg (28.0-33.3); Mean Corpuscular Volume 89.2 fL (83.0-100.0); Mean Platelet Volume 9.6 fL (9.4-12.4); Monocytes # 0.6 K/mcL (0.0-1.3); Monocytes % 8.7 %; Neutrophils # 2.2 K/mcL (1.6-8.9); Platelet Count 254 K/mcL (140-400); Red Blood Count 4.36 M/mcL (4.19-5.50); Red Cell Distribution Width 15.2 % (11.5-14.5); White Blood Count 6.3 K/mcL (4.3-11.1)
[2019-09-22 03:20] LABS: BUN/Creatinine Ratio 22 (6-26); Blood Urea Nitrogen 19 mg/dL (8-23); Calcium 8.9 mg/dL (8.6-10.3); Carbon Dioxide 25 mEq/L (23-29); Chloride 106 mEq/L (98-107); Glucose 145 mg/dL (70-105); Osmolality,Calculated 289 (280-300); Potassium 3.7 mEq/L (3.5-5.1); Sodium 137 mEq/L (136-145); eGFR For African Americans > 60 (> 60); eGFR For Non-African Americans > 60 (> 60)
[2019-09-22] MEDS: Aspirin Enteric Coated 81 MG Tablet PO SCH (08:12)
[2019-09-22] MEDS: Furosemide 20 MG TABLET PO SCH (08:12)
[2019-09-22] MEDS ORDERED: Metoprolol XL (24 HR) Succ 25 MG TAB.ER.24H PO SCH (09:00)
[2019-09-23] MEDS: Simethicone 80 MG TAB.CHEW PO PRN ×2 (00:17→20:45)
[2019-09-23] MEDS: traZODone 50 MG TABLET PO SCH (00:17)
[2019-09-23] MEDS: Heparin 25,000 UNIT/250 ML D5W 25,000 UNIT/250 ML IV.SOLN IVC SCH (03:55)
[2019-09-23 04:06] LABS: Basophils # 0.1 K/mcL (0.0-0.2); Basophils % 1.2 %; Eosinophils # 0.6 K/mcL (0.0-0.6); Eosinophils % 11.9 %; Hematocrit 38.3 % (37.5-50.1); Hemoglobin 12.3 g/dL (12.9-16.9); Immature Granulocytes % 0.4 % (0-4); Lymphocytes # 2.2 K/mcL (0.6-4.6); Lymphocytes % 43.4 %; Mean Corpuscular HGB Conc 32.1 g/dL (31.6-35.5); Mean Corpuscular Hemoglobin 29.5 pg (28.0-33.3); Mean Corpuscular Volume 91.8 fL (83.0-100.0); Mean Platelet Volume 9.9 fL (9.4-12.4); Monocytes # 0.6 K/mcL (0.0-1.3); Monocytes % 11.9 %; Neutrophils # 1.6 K/mcL (1.6-8.9); Platelet Count 245 K/mcL (140-400); Red Blood Count 4.17 M/mcL (4.19-5.50); Red Cell Distribution Width 15.1 % (11.5-14.5); Segmented Neutrophils % 31.2 %; White Blood Count 5.1 K/mcL (4.3-11.1)
[2019-09-23 04:26] LABS: BUN/Creatinine Ratio 16 (6-26); Blood Urea Nitrogen 17 mg/dL (8-23); Carbon Dioxide 26 mEq/L (23-29); Chloride 104 mEq/L (98-107); Glucose 117 mg/dL (70-105); Osmolality,Calculated 289 (280-300); Potassium 4.1 mEq/L (3.5-5.1); Sodium 138 mEq/L (136-145); eGFR For African Americans > 60 (> 60); eGFR For Non-African Americans > 60 (> 60)
[2019-09-23] MEDS: Aspirin Enteric Coated 81 MG Tablet PO SCH (08:05)
[2019-09-23] MEDS: Furosemide 20 MG TABLET PO SCH (08:05)
[2019-09-23] MEDS ORDERED: Heparin 1,000 UNITS/500 mL 500 ML ONE (08:14)
[2019-09-23] MEDS ORDERED: ISOVUE-370 200 ML INFUS..BTL ONE (08:14)
[2019-09-23] MEDS ORDERED: *HR* Heparin 10,000 UNIT/10 ML VIAL ONE (08:14)
[2019-09-23] MEDS ORDERED: 0.9 % Sodium Chloride 1,000 ML ONE ×2 (08:14→08:57)
[2019-09-23] MEDS ORDERED: Nitroglycerin 1,000 MCG/10 ML VIAL IV ONE (08:14)
[2019-09-23] MEDS ORDERED: *HR* Midazolam HCl 2 MG/2 ML VIAL ONE (08:57)
[2019-09-23] MEDS ORDERED: *HR* FentaNYL (PF) 100 MCG/2 ML VIAL ONE (08:57)
[2019-09-23] MEDS ORDERED: Tirofiban 12.5 MG/250ML 12.5 MG/250 ML BAG ONE (09:28)
[2019-09-23] MEDS ORDERED: Tirofiban 12.5 MG/250ML 12.5 MG/250 ML BAG IVC SCH (10:30)
[2019-09-24] MEDS ORDERED: Acetaminophen 325 MG TABLET PO ONE (01:03)
[2019-09-24 01:57] LABS: Basophils % 0.5 %; Eosinophils # 0.3 K/mcL (0.0-0.6); Eosinophils % 6.3 %; Hematocrit 32.9 % (37.5-50.1); Immature Granulocytes % 0.2 % (0-4); Lymphocytes # 0.3 K/mcL (0.6-4.6); Lymphocytes % 6.3 %; Mean Corpuscular HGB Conc 33.4 g/dL (31.6-35.5); Mean Corpuscular Hemoglobin 29.3 pg (28.0-33.3); Mean Corpuscular Volume 87.7 fL (83.0-100.0); Mean Platelet Volume 9.8 fL (9.4-12.4); Monocytes # 0.4 K/mcL (0.0-1.3); Neutrophils # 3.4 K/mcL (1.6-8.9); Platelet Count 196 K/mcL (140-400); Red Blood Count 3.75 M/mcL (4.19-5.50); Red Cell Distribution Width 15.1 % (11.5-14.5); Segmented Neutrophils % 77.7 %; White Blood Count 4.3 K/mcL (4.3-11.1)
[2019-09-24 02:14] LABS: BUN/Creatinine Ratio 18 (6-26); Blood Urea Nitrogen 16 mg/dL (8-23); Calcium 8.5 mg/dL (8.6-10.3); Carbon Dioxide 23 mEq/L (23-29); Chloride 106 mEq/L (98-107); Glucose 111 mg/dL (70-105); Osmolality,Calculated 282 (280-300); Sodium 135 mEq/L (136-145); eGFR For African Americans > 60 (> 60); eGFR For Non-African Americans > 60 (> 60)
[2019-09-24] MEDS: traZODone 50 MG TABLET PO SCH ×2 (04:31→23:06)
[2019-09-24] MEDS: Furosemide 20 MG TABLET PO SCH (07:38)
[2019-09-24] MEDS: Aspirin 81 MG TAB.CHEW PO SCH (07:38)
[2019-09-24] MEDS ORDERED: SODIUM CHLORIDE/NAHCO3/KCL/PEG 4,000 ML SOLN.RECON PO ONE (17:00)
[2019-09-25 04:33] LABS: Basophils # 0.1 K/mcL (0.0-0.2); Basophils % 1.1 %; Eosinophils # 0.6 K/mcL (0.0-0.6); Eosinophils % 12.6 %; Hematocrit 33.2 % (37.5-50.1); Hemoglobin 10.8 g/dL (12.9-16.9); Immature Granulocytes % 0.2 % (0-4); Immature Platelets 1.9 % (1.1-6.1); Lymphocytes # 0.8 K/mcL (0.6-4.6); Lymphocytes % 18.6 %; Mean Corpuscular HGB Conc 32.5 g/dL (31.6-35.5); Mean Corpuscular Hemoglobin 29.5 pg (28.0-33.3); Mean Corpuscular Volume 90.7 fL (83.0-100.0); Mean Platelet Volume 9.9 fL (9.4-12.4); Monocytes # 0.9 K/mcL (0.0-1.3); Monocytes % 20.2 %; Neutrophils # 2.1 K/mcL (1.6-8.9); Platelet Count 185 K/mcL (140-400); Red Blood Count 3.66 M/mcL (4.19-5.50); Red Cell Distribution Width 14.8 % (11.5-14.5); Segmented Neutrophils % 47.3 %; White Blood Count 4.4 K/mcL (4.3-11.1)
[2019-09-25 04:52] LABS: BUN/Creatinine Ratio 14 (6-26); Blood Urea Nitrogen 13 mg/dL (8-23); Calcium 8.9 mg/dL (8.6-10.3); Carbon Dioxide 23 mEq/L (23-29); Chloride 106 mEq/L (98-107); Glucose 98 mg/dL (70-105); Osmolality,Calculated 284 (280-300); Potassium 3.8 mEq/L (3.5-5.1); Sodium 137 mEq/L (136-145); eGFR For African Americans > 60 (> 60); eGFR For Non-African Americans > 60 (> 60)
[2019-09-25 04:53] LABS: Platelet Estimate Normal (Normal)
[2019-09-25] MEDS: Aspirin 81 MG TAB.CHEW PO SCH (07:43)
[2019-09-25] MEDS: Furosemide 20 MG TABLET PO SCH (07:43)
[2019-09-25 11:29] VITALS: BP 125/76
== END 2019-09-25 12:32 | disposition home or self-care (01) | DRG 246 ==
LOC: 2ANU 20:02 → EMEROOARM 20:02 → SUATTDRO 09-21 00:20 → 2ANU 09-21 01:06 → SUATTDRO 09-22 16:16
PROVIDERS: ADMIT Internal Medicine; ATTEND Internal Medicine

== ENCOUNTER 2019-12-05 21:39 | Observation (INO) ==
[2019-12-05 22:15] LABS: Basophils % 1.3 %; Eosinophils # 0.3 K/mcL (0.0-0.6); Eosinophils % 10.3 %; Hematocrit 41.6 % (37.5-50.1); Hemoglobin 13.2 g/dL (12.9-16.9); Lymphocytes # 1.4 K/mcL (0.6-4.6); Lymphocytes % 43.1 %; Mean Corpuscular HGB Conc 31.7 g/dL (31.6-35.5); Mean Corpuscular Hemoglobin 29.6 pg (28.0-33.3); Mean Corpuscular Volume 93.3 fL (83.0-100.0); Mean Platelet Volume 9.4 fL (9.4-12.4); Monocytes # 0.4 K/mcL (0.0-1.3); Monocytes % 11.9 %; Neutrophils # 1.1 K/mcL (1.6-8.9); Platelet Count 239 K/mcL (140-400); Red Blood Count 4.46 M/mcL (4.19-5.50); Red Cell Distribution Width 15.5 % (11.5-14.5); Segmented Neutrophils % 33.4 %; White Blood Count 3.2 K/mcL (4.3-11.1)
[2019-12-05 22:23] LABS: Estimated Average Glucose 117 mg/dl
[2019-12-05 22:44] LABS: Acetaminophen < 10 mcg/mL (10-20); BUN/Creatinine Ratio 15 (6-26); Blood Urea Nitrogen 11 mg/dL (8-23); Carbon Dioxide 24 mEq/L (23-29); Chol/HDL Ratio 5.3 (0-4.9); Cholesterol 217 mg/dL (< 200); Ethanol 41 mg/dL (Less than 10); Glucose 91 mg/dL (70-105); HDL Cholesterol 41 mg/dL (40-59); LDL Cholesterol,Calculated 155 mg/dL (0-99); Salicylate < 2.5 mg/dL (15.0-30.0); Triglycerides 106 mg/dL (< 150); Troponin I 0.05 ng/mL (< 0.04); eGFR For African Americans > 60 (> 60); eGFR For Non-African Americans > 60 (> 60)
[2019-12-05 22:48] LABS: Chloride 108 mEq/L (98-107); Osmolality,Calculated 289 (280-300); Potassium 3.3 mEq/L (3.5-5.1); Sodium 140 mEq/L (136-145)
[2019-12-05 22:52] LABS: Bilirubin,Urine Negative (Negative); Blood,Urine Negative (Negative); Clarity,Urine Clear (Clear); Color,Urine Yellow (Yellow); Glucose,Urine (UA) Normal (Normal); Ketones,Urine Negative (Negative); Leukocyte Esterase,Urine Trace (Negative); Nitrite,Urine Negative (Negative); Protein,Urine Negative (Neg-Trace); Specific Gravity,Urine 1.011 (1.010-1.025); Urobilinogen,Urine Normal (Normal)
[2019-12-05] MEDS ORDERED: Potassium Chloride Elixir 20 MEQ/15 ML UDC PO ONE (22:53)
[2019-12-05 22:56] LABS: Bacteria,Urine None Seen per hpf (None-Few); Hyaline Casts,Urine None Seen per lpf (None-Few); RBC,Urine 0-3 per hpf (0-3); Squamous Epithelial Cell,Urine None Seen per lpf (None-Few); WBC,Urine 0-3 per hpf (0-3)
[2019-12-05 23:06] LABS: Amphetamine Screen,Urine Negative ng/mL (Cutoff=1000); Barbiturate Screen,Urine Negative ng/mL (Cutoff=200); Benzodiazepines Screen,Urine Negative ng/mL (Cutoff=200); Cannabinoid Screen,Urine Negative ng/mL (Cutoff = 50); Cocaine Screen,Urine Negative ng/mL (Cutoff= 300); Opiate Screen,Urine Negative ng/mL (Cutoff=300); Phencyclidine Screen,Urine Negative ng/mL (Cutoff=25)
[2019-12-06] MEDS ORDERED: traZODone 50 MG TABLET PO PRN (00:56)
[2019-12-06] MEDS ORDERED: Artificial Tears SOLN 15 ML BOTTLE BOTH EYES PRN (00:56)
[2019-12-06] MEDS ORDERED: Naloxone 0.4 MG/ML INJ IVP PRN (00:59)
[2019-12-06] MEDS ORDERED: Ondansetron 4 MG/2 ML VIAL IVP PRN (00:59)
[2019-12-06] MEDS: Ipratropium/Albuterol Neb 3 ML IH SCH ×4 (03:26→22:06)
[2019-12-06 05:10] LABS: Troponin I 0.05 ng/mL (< 0.04)
[2019-12-06 05:14] LABS: BUN/Creatinine Ratio 15 (6-26); Blood Urea Nitrogen 15 mg/dL (8-23); Calcium 8.5 mg/dL (8.6-10.3); Carbon Dioxide 22 mEq/L (23-29); Chloride 111 mEq/L (98-107); Glucose 98 mg/dL (70-105); Osmolality,Calculated 291 (280-300); Sodium 140 mEq/L (136-145); eGFR For African Americans > 60 (> 60); eGFR For Non-African Americans > 60 (> 60)
[2019-12-06] MEDS ORDERED: Gabapentin 300 MG CAPSULE PO SCH (09:00)
[2019-12-06] MEDS: Multivit/Ca/Min/Fe/FA 1 TAB TABLET PO SCH (09:10)
[2019-12-06] MEDS: Folic Acid 1 MG TABLET PO SCH ×2 (09:10→20:03)
[2019-12-06] MEDS: Finasteride 5 MG TABLET PO SCH (09:10)
[2019-12-06] MEDS: Furosemide 20 MG TABLET PO SCH (09:10)
[2019-12-06] MEDS: Cholecalciferol (D-3) 1,000 UNIT (25MCG) TABLET PO SCH (09:10)
[2019-12-06] MEDS: Magnesium Oxide 400 MG TABLET PO SCH ×2 (09:10→16:17)
[2019-12-06] MEDS: Aspirin 81 MG TAB.CHEW PO SCH (09:10)
[2019-12-06] MEDS: FluocinoNIDE 0.05% CRM 15 GM TUBE TP SCH ×2 (09:59→20:06)
[2019-12-06] MEDS: Budesonide/Formoterol 160/4.5 1 PUFF INH IH SCH ×2 (10:26→22:05)
[2019-12-06] MEDS ORDERED: Melatonin 3 MG TABLET PO SCH (21:00)
[2019-12-06] MEDS ORDERED: Ipratropium/Albuterol Neb 3 ML IH PRN (23:39)
[2019-12-07 01:19] LABS: Hematocrit 38.2 % (37.5-50.1); Hemoglobin 12.1 g/dL (12.9-16.9); Mean Corpuscular HGB Conc 31.7 g/dL (31.6-35.5); Mean Corpuscular Hemoglobin 29.4 pg (28.0-33.3); Mean Corpuscular Volume 92.7 fL (83.0-100.0); Mean Platelet Volume 10.5 fL (9.4-12.4); Platelet Count 190 K/mcL (140-400); Red Blood Count 4.12 M/mcL (4.19-5.50); Red Cell Distribution Width 15.5 % (11.5-14.5); White Blood Count 2.9 K/mcL (4.3-11.1)
[2019-12-07 01:34] LABS: BUN/Creatinine Ratio 22 (6-26); Blood Urea Nitrogen 16 mg/dL (8-23); Calcium 8.7 mg/dL (8.6-10.3); Carbon Dioxide 21 mEq/L (23-29); Chloride 109 mEq/L (98-107); Glucose 148 mg/dL (70-105); Osmolality,Calculated 288 (280-300); Potassium 3.9 mEq/L (3.5-5.1); Sodium 137 mEq/L (136-145); eGFR For African Americans > 60 (> 60); eGFR For Non-African Americans > 60 (> 60)
[2019-12-07] MEDS: Furosemide 20 MG TABLET PO SCH (08:31)
[2019-12-07] MEDS: Folic Acid 1 MG TABLET PO SCH (08:31)
[2019-12-07] MEDS: Magnesium Oxide 400 MG TABLET PO SCH (08:31)
[2019-12-07] MEDS: Finasteride 5 MG TABLET PO SCH (08:31)
[2019-12-07] MEDS: Aspirin 81 MG TAB.CHEW PO SCH (08:31)
[2019-12-07] MEDS: Multivit/Ca/Min/Fe/FA 1 TAB TABLET PO SCH (08:31)
[2019-12-07] MEDS: Cholecalciferol (D-3) 1,000 UNIT (25MCG) TABLET PO SCH (08:31)
[2019-12-07] MEDS: FluocinoNIDE 0.05% CRM 15 GM TUBE TP SCH (08:32)
[2019-12-07] MEDS: Budesonide/Formoterol 160/4.5 1 PUFF INH IH SCH (11:51)
[2019-12-07 15:24] VITALS: BP 102/69
== END 2019-12-07 13:20 | disposition home or self-care (01) ==
LOC: EMEROOARM 21:39 → 2NENU 21:39
PROVIDERS: ADMIT Family Medicine; ATTEND Family Medicine